=== PATIENT | female | born 1955 | race Caucasian/White ===

== ENCOUNTER → 2016-05-14 | Outpatient (CLI) | payer MEDICARE, MEDICAID | LOC: NC 16:24 | PROVIDERS: ATTEND Internal Medicine Hematology & Oncology | DX: C50.112 Malignant neoplasm of central portion of left female breast (principal) ==

== ENCOUNTER 2016-05-15 16:07 | Emergency (ER) | payer MEDICARE, MEDICAID ==
--- NOTE | 2016-05-15 16:50 | ED.PDOC ---
History of Present Illness - General Chief Complaint: General Stated Complaint: sob, palpitaions Time Seen by Provider: 05/15/16 16:29 Source: patient, RN notes reviewed Exam Limitations: no limitations - History of Present Illness Initial Comments: Patient is a 61 y/o female with a history of metastatic breast cancer. She has a history of anemia. She seems to know when she is anemic because she gets very short of breath when her hemoglobin goes down. Patient has had increasing shortness of breath for several days. She had blood drawn at her oncologist's office and was called today and told to go to the ED because her hemoglobin was low. She reports also being dizzy. Timing/Duration: unsure Severity: moderate Improving Factors: nothing Worsening Factors: movement Associated Symptoms: headaches, shortness of breath, weakness Allergies/Adverse Reactions: Allergies Penicillins Allergy (Severe, Verified 02/29/16 11:00) Anaphylaxis Captopril Allergy (Verified 02/29/16 11:00) Meperidine [From Demerol HCl] Allergy (Verified 02/29/16 11:00) Olmesartan [From Benicar] Allergy (Verified 02/29/16 10:51) Prochlorperazine [From Compazine] Allergy (Verified 02/29/16 10:51) Sulfa Drugs Allergy (Verified 02/29/16 10:51) Home Medications: Ambulatory Orders Albuterol Sulfate 0.083 % IN QID 04/02/13 Clonazepam [Klonopin] 1 mg PO Q8HRS 04/02/13 Fish Oil 1,200 mg PO DAILY 04/02/13 Isosorbide Mononitrate 20 mg PO BID 04/02/13 Montelukast Sodium [Singulair] 10 mg PO BEDTIME 04/02/13 Pantoprazole Sodium [Protonix] 40 mg PO BID 04/02/13 Mirtazapine [Remeron] 30 mg PO HS 07/28/13 Calcium 500 mg PO BID #0 tab 07/30/13 Multiple Vitamin [Multivitamins] 1 cap PO DAILY #0 cap 07/30/13 Albuterol Inhaler [Ventolin Hfa Inhaler] 2 puff INH Q4HR PRN 01/04/14 Cholecalciferol [Vitamin D3] 2 each PO DAILY 01/04/14 Citalopram Hydrobromide 20 mg PO DAILY 01/04/14 Furosemide [Lasix] 20 mg PO DAILY 01/04/14 HYDROcodone 10MG/APAP 325MG [[place] 10/325] 1 - 2 each PO .Q4HR PRN 01/04/14 Magnesium Chloride-Calcium [Slow Magnesium/Calcium 64-106 mg] 2 tab PO QID 01/04 Potassium Chloride [K-Tab] 10 meq PO BID 01/04/14 Tiotropium [place] Monohydrate [Spiriva Handihaler] 1 puff IN DAILY 01/04/14 Cetirizine HCl [Zyrtec] 10 mg PO DAILY 02/29/16 Ferrous Sulfate 324 mg PO BID 02/29/16 Fluticasone Furoate-Vilanterol [Breo Ellipta 100-25 Mcg/INH] 1 inh INH BEDTIME 02/29/16 Insulin Degludec [Tresiba Flextouch] 20 unit SC DAILY 02/29/16 Promethazine W/Codeine Syr [Phenergan With Codeine Syrup] 5 ml PO .Q4H PRN 02/28 Rosuvastatin Calcium [Crestor] 40 mg PO BEDTIME 02/29/16 Sucralfate Tab [Carafate Tab] 1 gm PO QID 02/29/16 Metoprolol Succinate [Toprol XL] 100 mg PO QAM #30 tab 04/14/16 Review of Systems - Review of Systems Constitutional: States: weakness EENTM: States: nose congestion Respiratory: States: short of breath Cardiology: States: palpitations Gastrointestinal/Abdominal: States: no symptoms reported Genitourinary: States: no symptoms reported Musculoskeletal: States: joint pain, muscle pain, muscle stiffness Skin: States: no symptoms reported Neurological: States: headache Endocrine: States: intolerance to heat Hematologic/Lymphatic: States: anemia, easy bleeding, easy bruising All other Systems: Reviewed and Negative Past Medical History (General) - Patient Medical History Hx Seizures: No Hx Stroke: No Hx Dementia: No Hx Asthma: No Hx of COPD: Yes Hx Cardiac Disorders: No Hx Congestive Heart Failure: No Hx Pacemaker: No Hx Hypertension: Yes Hx Thyroid Disease: No Hx Diabetes: Yes Hx Gastroesophageal Reflux: No Hx Renal Disease: No Hx Cancer: Yes Hx of HIV: No Hx Hepatitis C: No Hx MRSA: No Surgical History: appendectomy, cholecystectomy - Vaccination History Hx Tetanus, Diphtheria Vaccination: No Hx Influenza Vaccination: No Hx Pneumococcal Vaccination: No - Social History Hx Tobacco Use: Yes Hx Chewing Tobacco Use: No Hx Alcohol Use: No Hx Substance Use: No Hx Substance Use Treatment: No Hx Depression: No Hx Physical Abuse: No Hx Emotional Abuse: No Hx Suspected Abuse: No - Female History Patient is a Female of Child Bearing Age (10 -59 yrs old): No Patient : No Family Medical History - Family History Grandparents Family History: Unknown Living Status: Mother Living Status: Cause of : Dementia Hx Family Asthma: No Hx Family Congestive Heart Failure: Yes Hx Family Hypertension: Yes Hx Cardiac Disease: Yes Hx Family Diabetes: No Hx Family Cancer: Yes Physical Exam - Physical Exam General Appearance: Alert Eye Exam: bilateral normal Ears, Nose, Throat: hearing grossly normal, normal ENT inspection, sinus pain/ drainage - Bilateral maxillary sinus tenderness, nasal congestion Neck: non-tender Respiratory: lungs clear, normal breath sounds, no respiratory distress, no accessory muscle use Cardiovascular/Chest: normal peripheral pulses, regular rate, rhythm, no edema, no gallop, systolic murmur - III/ Peripheral Pulses: radial,right: 2+, radial,left: 2+, dorsalis pedis,right: 2+, dorsalis pedis,left: 2+ Gastrointestinal/Abdominal: normal bowel sounds, non tender, soft, no organomegaly Extremity: non-tender, no pedal edema, no calf tenderness Neurologic: alert, normal mood/affect, oriented x 3 Skin Exam: pallor Progress - EKG/XRAY/CT EKG: Tachy, no ST T wave changes Comments: 108bpm, nml axis, nml intervals, No comparison, Sinus Tachycardia XRAY: chest Xray Comments: Unremarkable Departure - Departure Clinical Impression: Hematochezia Anemia Qualifiers: Anemia type: iron deficiency Iron deficiency anemia type: chronic blood loss Qualifier Code: (D50.0) 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 Qualifiers: Laterality: unspecified laterality Qualifier Code: (C50.919) Malignant neoplasm of unspecified site of unspecified female breast Time of Disposition: 18:34 Disposition: Transfer to Hospital Condition: Poor Home Medications: Ambulatory Orders Albuterol Sulfate 0.083 % IN QID 04/02/13 Clonazepam [Klonopin] 1 mg PO Q8HRS 04/02/13 Fish Oil 1,200 mg PO DAILY 04/02/13 Isosorbide Mononitrate 20 mg PO BID 04/02/13 Montelukast Sodium [Singulair] 10 mg PO BEDTIME 04/02/13 Pantoprazole Sodium [Protonix] 40 mg PO BID 04/02/13 Mirtazapine [Remeron] 30 mg PO HS 07/28/13 Calcium 500 mg PO BID #0 tab 07/30/13 Multiple Vitamin [Multivitamins] 1 cap PO DAILY #0 cap 07/30/13 Albuterol Inhaler [Ventolin Hfa Inhaler] 2 puff INH Q4HR PRN 01/04/14 Cholecalciferol [Vitamin D3] 2 each PO DAILY 01/04/14 Citalopram Hydrobromide 20 mg PO DAILY 01/04/14 Furosemide [Lasix] 20 mg PO DAILY 01/04/14 HYDROcodone 10MG/APAP 325MG [[place] 10/325] 1 - 2 each PO .Q4HR PRN 01/04/14 Magnesium Chloride-Calcium [Slow Magnesium/Calcium 64-106 mg] 2 tab PO QID 01/04 Potassium Chloride [K-Tab] 10 meq PO BID 01/04/14 Tiotropium [place] Monohydrate [Spiriva Handihaler] 1 puff IN DAILY 01/04/14 Cetirizine HCl [Zyrtec] 10 mg PO DAILY 02/29/16 Ferrous Sulfate 324 mg PO BID 02/29/16 Fluticasone Furoate-Vilanterol [Breo Ellipta 100-25 Mcg/INH] 1 inh INH BEDTIME 02/29/16 Insulin Degludec [Tresiba Flextouch] 20 unit SC DAILY 02/29/16 Promethazine W/Codeine Syr [Phenergan With Codeine Syrup] 5 ml PO .Q4H PRN 02/28 Rosuvastatin Calcium [Crestor] 40 mg PO BEDTIME 02/29/16 Sucralfate Tab [Carafate Tab] 1 gm PO QID 02/29/16 Metoprolol Succinate [Toprol XL] 100 mg PO QAM #30 tab 04/14/16 Transfer to Outside Facility - Transfer Information Accepting Provider:: Dr. Merchant Accepting Facility: [facility] Reason for Transfer: required specialist not available - GI
--- NOTE | 2016-05-15 16:58 | RAD ---
EXAM DESCRIPTION: XR CHEST 1 VIEW CLINICAL HISTORY: shortness of breath COMPARISON: 13 April 2016. TECHNIQUE: AP portable chest FINDINGS: An [id number]-T-[id number] catheter seen in place on the patient's right with the distal tip in the region of the superior vena cava. The lungs are clear. The heart is within the range of normal. IMPRESSION: A right-sided [id number] is observed. The chest is otherwise unremarkable. Electronically signed by: Ken Vogel MD 05/15/2016 16:56
[2016-05-15 17:29] VITALS: O2SAT 98
[2016-05-15 19:18] VITALS: TEMP 98.5
[2016-05-15 19:19] VITALS: BP 119/67
== END 2016-05-15 19:15 | disposition short-term general hospital (02) ==
LOC: ER 16:07
DX: D50.0 Iron deficiency anemia secondary to blood loss (chronic) (principal); K92.1 Melena; C50.919 Malignant neoplasm of unspecified site of unspecified female breast; C79.51 Secondary malignant neoplasm of bone; J44.9 Chronic obstructive pulmonary disease, unspecified; I10 Essential (primary) hypertension; E11.9 Type 2 diabetes mellitus without complications; Z87.891 Personal history of nicotine dependence; Z88.0 Allergy status to penicillin; Z88.2 Allergy status to sulfonamides; Z88.8 Allergy status to other drugs, medicaments and biological substances; Z79.899 Other long term (current) drug therapy; Z79.4 Long term (current) use of insulin

== ENCOUNTER → 2016-05-20 | Outpatient (CLI) | payer MEDICARE, MEDICAID | LOC: NC 12:21 | PROVIDERS: ATTEND Family Medicine | DX: D64.9 Anemia, unspecified (principal) ==

== ENCOUNTER → 2016-05-22 | Outpatient (CLI) | payer MEDICARE, MEDICAID | LOC: GMAJ 18:08 | PROVIDERS: ATTEND Family Medicine | DX: K28.0 Acute gastrojejunal ulcer with hemorrhage (principal) ==

== ENCOUNTER 2016-05-24 16:38 | Emergency (ER) | payer MEDICARE, MEDICAID ==
[2016-05-24] MEDS ORDERED: IPRATROPIUM/ALBUTEROL 3 ML VIAL NEB ONE (17:31)
--- NOTE | 2016-05-24 17:35 | ED.PDOC ---
History of Present Illness - General Chief Complaint: Problem Stated Complaint: burning with urination Time Seen by Provider: 05/24/16 17:30 Source: patient - History of Present Illness Initial Comments: Patient stated that she had multiple episodes of diarrhea watery the last 4 days and todya with burning pain on urination.Recently discharged from hospital with bleeding ulcer and had blood transfusion,egd ,colonoscopy Timing/Duration: other - 4 days ago Improving Factors: nothing Worsening Factors: nothing Associated Symptoms: denies symptoms Allergies/Adverse Reactions: Allergies Penicillins Allergy (Severe, Verified 02/29/16 11:00) Anaphylaxis Captopril Allergy (Verified 02/29/16 11:00) Meperidine [From Demerol HCl] Allergy (Verified 02/29/16 11:00) Olmesartan [From Benicar] Allergy (Verified 02/29/16 10:51) Prochlorperazine [From Compazine] Allergy (Verified 02/29/16 10:51) Sulfa Drugs Allergy (Verified 02/29/16 10:51) Home Medications: Ambulatory Orders Albuterol Sulfate 0.083 % IN QID 04/02/13 Clonazepam [Klonopin] 1 mg PO Q8HRS 04/02/13 Fish Oil [(None)] 1,200 mg PO DAILY 04/02/13 Isosorbide Mononitrate 20 mg PO BID 04/02/13 Montelukast Sodium [Singulair] 10 mg PO BEDTIME 04/02/13 Pantoprazole Sodium [Protonix] 40 mg PO BID 04/02/13 Mirtazapine [Remeron] 30 mg PO HS 07/28/13 Calcium 500 mg PO BID #0 tab 07/30/13 Multiple Vitamin [Multivitamins] 1 cap PO DAILY #0 cap 07/30/13 Albuterol Inhaler [Ventolin Hfa Inhaler] 2 puff INH Q4HR PRN 01/04/14 Cholecalciferol [Vitamin D3] 2 each PO DAILY 01/04/14 Citalopram Hydrobromide 20 mg PO DAILY 01/04/14 Furosemide [Lasix] 20 mg PO DAILY 01/04/14 HYDROcodone 10MG/APAP 325MG [[place] 10/325] 1 - 2 each PO .Q4HR PRN 01/04/14 Magnesium Chloride-Calcium Car [Slow Magnesium Chloride/ 70-117 mg] 2 tab PO QID 01/04/14 Potassium Chloride [K-Tab] 10 meq PO BID 01/04/14 Tiotropium [place] Monohydrate [Spiriva Handihaler] 1 puff IN DAILY 01/04/14 Cetirizine HCl [Zyrtec] 10 mg PO DAILY 02/29/16 Ferrous Sulfate 324 mg PO BID 02/29/16 Fluticasone Furoate-Vilanterol [Breo Ellipta 100-25 Mcg/INH] 1 inh INH BEDTIME 02/29/16 Insulin Degludec [Tresiba Flextouch] 20 unit SC DAILY 02/29/16 Promethazine W/Codeine Syr [Phenergan With Codeine Syrup] 5 ml PO .Q4H PRN 02/28 Rosuvastatin Calcium [Crestor] 40 mg PO BEDTIME 02/29/16 Sucralfate Tab [Carafate Tab] 1 gm PO QID 02/29/16 Metoprolol Succinate [Toprol XL] 100 mg PO QAM #30 tab 04/14/16 Nitrofurantoin Monohydrate Mac [Macrobid] 100 mg PO BID #10 cap 05/24/16 Review of Systems - Review of Systems Constitutional: States: no symptoms reported EENTM: States: no symptoms reported Respiratory: States: no symptoms reported Cardiology: States: no symptoms reported Gastrointestinal/Abdominal: States: diarrhea, other - gi bleeding had recent colonoscopy/egd and apc cautrey done at [facility] Genitourinary: States: frequency Musculoskeletal: States: no symptoms reported Skin: States: no symptoms reported Neurological: States: no symptoms reported Endocrine: States: no symptoms reported Hematologic/Lymphatic: States: anemia Past Medical History (General) - Patient Medical History Hx Seizures: No Hx Stroke: No Hx Dementia: No Hx Asthma: No Hx of COPD: Yes Hx Cardiac Disorders: No Hx Congestive Heart Failure: No Hx Pacemaker: No Hx Hypertension: Yes Hx Thyroid Disease: No Hx Diabetes: Yes Hx Gastroesophageal Reflux: No Hx Renal Disease: No Hx Cancer: Yes - breast with bone metastases Hx of HIV: No Hx Hepatitis C: No Hx MRSA: No Surgical History: appendectomy, cancer surgery - left mastectomy, cholecystectomy - Vaccination History Hx Tetanus, Diphtheria Vaccination: No Hx Influenza Vaccination: Yes Hx Pneumococcal Vaccination: No - Social History Hx Tobacco Use: Yes Hx Chewing Tobacco Use: No Hx Alcohol Use: No Hx Substance Use: No Hx Substance Use Treatment: No Hx Depression: No Hx Physical Abuse: No Hx Emotional Abuse: No Hx Suspected Abuse: No - Activities of Daily Living Patient Lives Alone: No - with family at home - Female History Patient is a Female of Child Bearing Age (10 -59 yrs old): No Patient : No Family Medical History - Family History Grandparents Family History: Unknown Living Status: Mother Living Status: Cause of : Dementia Hx Family Asthma: No Hx Family Congestive Heart Failure: Yes Hx Family Hypertension: Yes Hx Cardiac Disease: Yes Hx Family Diabetes: No Hx Family Cancer: Yes Physical Exam - Physical Exam General Appearance: Alert, No apparent distress Eye Exam: bilateral normal - wears glasses Ears, Nose, Throat: hearing grossly normal, normal ENT inspection, normal pharynx Neck: non-tender, full range of motion, supple Respiratory: lungs clear, normal breath sounds, no respiratory distress, other - left mastectomy Cardiovascular/Chest: normal peripheral pulses, regular rate, rhythm, no edema, no gallop, no murmur Peripheral Pulses: radial,right: 2+, radial,left: 2+ Gastrointestinal/Abdominal: non tender, soft, no organomegaly Back Exam: no CVA tenderness, no vertebral tenderness Extremity: normal range of motion, non-tender, normal inspection, no pedal edema , no calf tenderness Neurologic: no motor/sensory deficits, alert, normal mood/affect Skin Exam: normal color, warm/dry Lymphatic: no adenopathy Departure - Departure Clinical Impression: Noninfectious diarrhea, Hypokalemia, gastrointestinal losses, Anemia due to blood loss, chronic, On antineoplastic chemotherapy Breast cancer metastasized to bone Qualifiers: Laterality: left Qualifier Code: (C50.912) Malignant neoplasm of unspecified site of left female breast Urinary tract infection Qualifiers: Urinary tract infection type: site unspecified Hematuria presence: without hematuria Qualifier Code: (N39.0) Urinary tract infection, site not specified Time of Disposition: 21:43 Disposition: Discharge to Home or Self Care Condition: Good Departure Forms: ED Discharge - Pt. Copy, Patient Portal Self Enrollment Instructions: Probiotics May Decrease Intensity and Duration of Diarrhea Due to Infection Referrals: Yoel Alford MD [Primary Care Provider] - 1-2 Weeks Prescriptions: Nitrofurantoin Monohydrate Mac [Macrobid] 100 mg PO BID #10 cap Home Medications: Ambulatory Orders Albuterol Sulfate 0.083 % IN QID 04/02/13 Clonazepam [Klonopin] 1 mg PO Q8HRS 04/02/13 Fish Oil [(None)] 1,200 mg PO DAILY 04/02/13 Isosorbide Mononitrate 20 mg PO BID 04/02/13 Montelukast Sodium [Singulair] 10 mg PO BEDTIME 04/02/13 Pantoprazole Sodium [Protonix] 40 mg PO BID 04/02/13 Mirtazapine [Remeron] 30 mg PO HS 07/28/13 Calcium 500 mg PO BID #0 tab 07/30/13 Multiple Vitamin [Multivitamins] 1 cap PO DAILY #0 cap 07/30/13 Albuterol Inhaler [Ventolin Hfa Inhaler] 2 puff INH Q4HR PRN 01/04/14 Cholecalciferol [Vitamin D3] 2 each PO DAILY 01/04/14 Citalopram Hydrobromide 20 mg PO DAILY 01/04/14 Furosemide [Lasix] 20 mg PO DAILY 01/04/14 HYDROcodone 10MG/APAP 325MG [[place] 10/325] 1 - 2 each PO .Q4HR PRN 01/04/14 Magnesium Chloride-Calcium Car [Slow Magnesium Chloride/ 70-117 mg] 2 tab PO QID 01/04/14 Potassium Chloride [K-Tab] 10 meq PO BID 01/04/14 Tiotropium [place] Monohydrate [Spiriva Handihaler] 1 puff IN DAILY 01/04/14 Cetirizine HCl [Zyrtec] 10 mg PO DAILY 02/29/16 Ferrous Sulfate 324 mg PO BID 02/29/16 Fluticasone Furoate-Vilanterol [Breo Ellipta 100-25 Mcg/INH] 1 inh INH BEDTIME 02/29/16 Insulin Degludec [Tresiba Flextouch] 20 unit SC DAILY 02/29/16 Promethazine W/Codeine Syr [Phenergan With Codeine Syrup] 5 ml PO .Q4H PRN 02/28 Rosuvastatin Calcium [Crestor] 40 mg PO BEDTIME 02/29/16 Sucralfate Tab [Carafate Tab] 1 gm PO QID 02/29/16 Metoprolol Succinate [Toprol XL] 100 mg PO QAM #30 tab 04/14/16 Nitrofurantoin Monohydrate Mac [Macrobid] 100 mg PO BID #10 cap 05/24/16 Additional Instructions: RETURN TO EMERGENCY ROOM NEEDED
[2016-05-24] MEDS ORDERED: LACTATED RINGERS 1,000 ML IVS ONE (17:37)
[2016-05-24] MEDS ORDERED: POTASSIUM CHLORIDE 20 MEQ TAB PO ONE (19:12)
[2016-05-24] MEDS ORDERED: KCL 20MEQ/WATER FOR INJ 100ML 20 MEQ in PREMIX BAG 1 BAG IVPB ONE (19:13)
[2016-05-24] MEDS ORDERED: KCL 20MEQ/WATER FOR INJ 100ML 100 ML IVPB ONE (19:37)
[2016-05-24] MEDS ORDERED: NITROFURANTOIN MONO (ER DISP) 100 MG CAP PO ONE (21:49)
[2016-05-24] MEDS ORDERED: NITROFURANTOIN MONOHYDRATE MAC 100 MG CAP ONE (21:59)
[2016-05-24] MEDS ORDERED: NITROFURANTOIN MONOHYDRATE MAC 100 MG CAP PO ONE (22:01)
[2016-05-24] MEDS ORDERED: HEPARIN SODIUM 100 U/ML 5 ML SYG IV ONE (22:32)
[2016-05-24 22:52] VITALS: O2SAT 94
[2016-05-24 22:59] VITALS: BP 108/64; TEMP 97.9
== END 2016-05-24 22:59 | disposition home or self-care (01) ==
LOC: ER 16:38
DX: N39.0 Urinary tract infection, site not specified (principal); C50.912 Malignant neoplasm of unspecified site of left female breast; C79.51 Secondary malignant neoplasm of bone; R19.7 Diarrhea, unspecified; E87.6 Hypokalemia; J44.9 Chronic obstructive pulmonary disease, unspecified; I10 Essential (primary) hypertension; Z90.12 Acquired absence of left breast and nipple; Z87.891 Personal history of nicotine dependence; E11.9 Type 2 diabetes mellitus without complications; D50.0 Iron deficiency anemia secondary to blood loss (chronic); Z79.899 Other long term (current) drug therapy; Z79.4 Long term (current) use of insulin; Z88.0 Allergy status to penicillin; Z88.2 Allergy status to sulfonamides
CPT/HCPCS: 36415; 80053; 81001; 83735; 85025; 87086; 87088; 87186; 87324; J1642; J3480; J7120; J7620

== ENCOUNTER → 2016-06-04 | Outpatient (CLI) | payer MEDICARE, OTHER | LOC: NC 14:24 | PROVIDERS: ATTEND Family Medicine | DX: C50.112 Malignant neoplasm of central portion of left female breast (principal); C79.51 Secondary malignant neoplasm of bone ==

== ENCOUNTER → 2016-06-11 | Outpatient (CLI) | payer MEDICARE, OTHER | LOC: NC 10:33 | PROVIDERS: ATTEND Family Medicine | DX: C79.51 Secondary malignant neoplasm of bone (principal) ==

== ENCOUNTER → 2016-06-18 | Outpatient (CLI) | payer MEDICARE, OTHER | LOC: NC 14:00 | PROVIDERS: ATTEND Internal Medicine Gastroenterology | DX: C50.112 Malignant neoplasm of central portion of left female breast (principal); C79.51 Secondary malignant neoplasm of bone ==

== ENCOUNTER → 2016-06-25 | Outpatient (CLI) | payer MEDICARE, OTHER | END | disposition home or self-care (01) | LOC: NC 11:54 | PROVIDERS: ATTEND Family Medicine | DX: C79.51 Secondary malignant neoplasm of bone (principal) ==

== ENCOUNTER → 2016-07-02 | Outpatient (CLI) | payer MEDICARE, OTHER | END | disposition home or self-care (01) | LOC: NC 10:20 | PROVIDERS: ATTEND Family Medicine | DX: C79.51 Secondary malignant neoplasm of bone (principal) ==

== ENCOUNTER 2016-08-03 06:00 | Outpatient (CLI) | payer MEDICARE, MEDICAID ==
[2016-08-03] MEDS ORDERED: SODIUM CHLORIDE 0.9% 500ML 500 ML IVS ONE (08:13)
[2016-08-03] MEDS ORDERED: diphenhydrAMINE HCL 50 MG/ML VIAL IV ONE (08:25)
[2016-08-03] MEDS ORDERED: ACETAMINOPHEN 325 MG TAB PO ONE (08:26)
[2016-08-03] MEDS ORDERED: SODIUM CHLORIDE 0.9% (FLUSH) 10 ML SYG IV ONE (14:08)
[2016-08-03] MEDS ORDERED: HEPARIN SODIUM 100 U/ML 5 ML SYG IV ONE (14:09)
[2016-08-03 14:22] VITALS: BP 132/72; TEMP 99.1; O2SAT 99
== END 2016-08-03 14:30 | disposition home or self-care (01) ==
LOC: TXRM 06:00
PROVIDERS: ATTEND Internal Medicine Hematology & Oncology
PROC: 30233N1 Transfusion of Nonautologous Red Blood Cells into Peripheral Vein, Percutaneous Approach (ICD-10-PCS; principal; 2016-08-03 08:00)
DX: D64.9 Anemia, unspecified (principal)
CPT/HCPCS: 36415; 36430; 85014; 85018; 86850; 86900; 86901; 86922; 87798; A4216; G0463; J1200; J1642; J7040; P9016

== ENCOUNTER → 2016-08-06 | Outpatient (CLI) | payer MEDICARE, MEDICAID | END | disposition home or self-care (01) | LOC: NC 10:23 | PROVIDERS: ATTEND Family Medicine | DX: C50.112 Malignant neoplasm of central portion of left female breast (principal); E11.42 Type 2 diabetes mellitus with diabetic polyneuropathy; I11.9 Hypertensive heart disease without heart failure ==

== ENCOUNTER → 2016-08-30 | Outpatient (CLI) | payer MEDICARE, MEDICAID ==
--- NOTE | 2016-08-31 08:03 | CT ---
EXAM DESCRIPTION: Abdomen/Pelvis w/wo Contrast (accession [id number]), Chest w/Contrast (accession [id number]) CLINICAL HISTORY: 61 years Female, MALIGNANT NEOPLASM OF BREAST COMPARISON: CT abdomen pelvis performed on September 14, [address] of the chest abdomen pelvis performed in December 10, 2014 TECHNIQUE: CT of the chest, abdomen and pelvis was performed with IV contrast. Pre-IV contrast images of the abdomen and pelvis were also obtained. This exam was performed according to our departmental dose-optimization program, which includes automated exposure control, adjustment of the mA and/or kV according to patient size and/or use of iterative reconstruction technique. FINDINGS: CT chest: There has been previous left-sided mastectomy. No axillary adenopathy or right breast lesion is identified. A right-sided Mediport device is present, only partially visualized. There is no mediastinal or hilar adenopathy. No pleural or pericardial effusion. The central airways are clear. There is no airspace consolidation or suspicious lung nodule. There are multiple round lytic lesions in the right humeral head, nonspecific and only partially visualized. There is mixed lytic sclerotic appearance of the T8 vertebral body without compression deformity, unchanged from November,. CT abdomen pelvis: There is no adenopathy, ascites or pneumoperitoneum. The gallbladder is surgically absent. There is a 1.3 cm right adrenal nodule which is unchanged from November, and probably represents an adenoma. No new adrenal nodule. The spleen is slightly enlarged, measuring 14.5 cm in length, and this is new from the prior exam. There is small round low density lesions in both kidneys which are incompletely characterized but likely represent cysts. No small bowel wall thickening or dilated small bowel loop. The uterus and ovaries are unremarkable for patient's age. There is occasional colonic diverticulosis without diverticulitis. There is an irregular area of lysis and sclerosis posteriorly in the left ilium, unchanged from November,. There are degenerative changes in the lumbar spine at several levels. IMPRESSION: Irregular areas of lysis and sclerosis in the left ilium, T8 vertebral body and partially visualized in the right humeral head, nonspecific. The appearance of the T8 body and left ilium is unchanged from November,. Differential considerations include fibrous dysplasia or bony metastatic disease. Mild splenomegaly, nonspecific but new from November,. Postoperative changes related previous left-sided mastectomy, but no additional evidence of recurrent or metastatic disease in the chest, abdomen or pelvis. Small right adrenal adenoma, colonic diverticulosis without diverticulitis and other nonacute findings as detailed above. Electronically signed by: Gume Sue MD 08/31/2016 8:01 AM CDT
--- NOTE | 2016-09-03 08:22 | NM ---
EXAM DESCRIPTION: Bone Scan, Whole Body CLINICAL HISTORY: 61 years Female, C50.112 breast cancer COMPARISON: Bone scan obtained on October 06, 2015 [address]s performed on August 30, 2016, September 14, 2015 and December 10, 2014 TECHNIQUE: Whole body bone scan was performed after the IV administration of 26.8 mCi technetium 99 M-MDP FINDINGS: No whole-body images are included on this exam. There is some increased activity in the left ilium, stable or slightly decreased from the patient's previous bone scan and correlating with findings from previous CTs. There is some slightly increased activity in both shoulders including the humeral heads, nonspecific. Asymmetrically increased activity in the right humeral head which was seen on the previous bone scan is not identified on the current study. There is some degenerative activity in the knees bilaterally. No additional bone lesion is identified. Specifically, there is no pathologic activity at any level in the cervical, thoracic or lumbar spine. Physiologic soft tissue activity is noted in the kidneys and bladder. IMPRESSION: Increased activity in the left ilium and right humeral head, stable or decreased from Sep, 2015. Considering the appearance of the left ilium on the patient's most recent CT and older CTs, findings suggest Paget's disease, less likely treated bony metastatic disease. Electronically signed by: Gume Seu MD 09/03/2016 8:21 AM CDT
== END | disposition home or self-care (01) ==
LOC: CT 08-28 08:42
PROVIDERS: ATTEND Internal Medicine Hematology & Oncology
DX: C50.112 Malignant neoplasm of central portion of left female breast (principal)

== ENCOUNTER → 2016-09-19 | Outpatient (CLI) | payer MEDICARE, MEDICAID | END | disposition home or self-care (01) | LOC: NC 14:19 | PROVIDERS: ATTEND Family Medicine | DX: C50.112 Malignant neoplasm of central portion of left female breast (principal) ==

== ENCOUNTER → 2016-09-27 | Outpatient (CLI) | payer MEDICARE, MEDICAID | END | disposition home or self-care (01) | LOC: NC 13:59 | PROVIDERS: ATTEND Family Medicine | DX: D64.9 Anemia, unspecified (principal) ==

== ENCOUNTER → 2016-10-11 | Outpatient (CLI) | payer MEDICARE, MEDICAID | END | disposition home or self-care (01) | LOC: NC 14:36 | PROVIDERS: ATTEND Family Medicine | DX: C50.112 Malignant neoplasm of central portion of left female breast (principal); R30.0 Dysuria ==

== ENCOUNTER → 2016-10-18 | Outpatient (CLI) | payer MEDICARE, MEDICAID | END | disposition home or self-care (01) | LOC: NC 14:12 | PROVIDERS: ATTEND Family Medicine | DX: D64.9 Anemia, unspecified (principal) ==

== ENCOUNTER 2016-11-29 14:37 | Inpatient (IN) | payer MEDICARE, MEDICAID ==
--- NOTE | 2016-11-29 14:39 | HP ---
SUPERVISING PHYSICIAN: Ollie Bishop M.D. CHIEF COMPLAINT: Cellulitis of the back. HISTORY OF PRESENT ILLNESS: This is a 61 year-old female patient who has a longstanding history of breast cancer and diabetes, who saw her primary care physician, Dr. Alford, in the office on Saturday for an EIC of her upper back. He gave her Rifampin and doxycycline. She thinks that this has been going on for about a month, but it was about 10 cm in diameter with no fluctuance. This morning, she actually called EMS because she became quite nauseated and felt that she was having an adverse reaction to her Rifampin as she has taken doxycycline in the past without any problem. She also had a low blood sugar and EMS did not take her to any facility as she recovered quite nicely after she called them. She did go to [facility] today for her scheduled chemotherapy treatment per Dr. Joshua Lazar, her oncologist. She had to stop mcc between [place] and [facility] due to her low blood sugar and once she got to Dr. Lazar' office, Shena Chaudhary [facility], examined her back and the area of cellulitis had extended to most of her upper back. It was quite inflamed as well as edematous. There was no fluctuance. Shena Chaudhary called me about the patient and then Dr. Alford called me and she was sent over as a direct admission for failed outpatient antibiotic therapy for her cellulitis on her upper back and to receive vancomycin IV antibiotic treatments. PAST MEDICAL HISTORY: 1. Diabetes mellitus type 2. 2. Breast cancer left sided. 3. Chronic obstructive pulmonary disease. 4. Congestive heart failure of unknown etiology. 5. Hypertension. 6. Gastroesophageal reflux disease. 7. Coronary artery disease. PAST SURGICAL HISTORY: 1. Appendectomy. 2. Cholecystectomy. 3. Left breast mastectomy. CURRENT MEDICATIONS: Per the EMR and awaiting verification. ALLERGIES: PENICILLIN, CAPTOPRIL, MEPERIDINE, BENICAR, COMPAZINE, SULFA AND RIFAMPIN. SOCIAL HISTORY: She smoked for many years but she quit back in 2009. She denies any ETOH or illicit drug use. REVIEW OF SYSTEMS: Positive for low-grade fever. Negative for any fatigue or weight changes. HEENT: Denies sinus symptoms, ear pain, vision changes or sore throat. RESPIRATORY: Denies coughing, wheezing or shortness of breath. CARDIAC: Denies chest pain, palpitations or tachycardia. GASTROINTESTINAL: Denies nausea or vomiting, diarrhea or constipation. NEUROLOGIC: Denies headache, dizziness or seizures. SKIN: As per history of present illness. GENITOURINARY: Denies dysuria, hematuria or polyuria. PHYSICAL EXAMINATION: VITAL SIGNS: Temperature 100.1, pulse rate 83, blood pressure 115/69, respiratory rate 17, O2 sat 96% on room air. GENERAL: This is a 61 year-old female patient who is sitting in her hospital bed. She is in no acute distress. HEENT: Normocephalic and atraumatic. Pupils are equal and reactive. Oropharynx is clear. Oral mucous membranes are moist. NECK: Supple without mass. CHEST: Clear to auscultation bilaterally. There is equal rise and fall of the chest with inspiration and expiration. CARDIOVASCULAR: Regular rate and rhythm. ABDOMEN: Soft, nondistended, non-tender. Bowel sounds are positive. EXTREMITIES: No cyanosis, clubbing or edema. SKIN: She has a large area on her upper back that has induration and erythema with 1 central EIC. The actual EIC is approximately 6 to 7 cm in diameter but the area of erythema is across the entire upper back. There is no fluctuance. LABORATORY: White count is 6.4, hemoglobin 11.7, hematocrit 36.7, platelets 125. Chemistry basically is within normal limits with the exception of glucose is 137, AST 44 and alkaline phosphatase is 409. C reactive protein is 2.8 and ESR is 45. Urinalysis is negative except for it is orange which is most likely due to the Rifampin. Urine culture and blood culture is pending. All other labs and films have been reviewed via the EMR. ASSESSMENT: 1. Cellulitis to the upper back that has failed outpatient antibiotic therapy presently on vancomycin. 2. Left sided breast cancer presently on chemotherapy treatment. 3. Diabetes mellitus type 2. 4. Hypertension. 5. Gastroesophageal reflux disease. 6. Congestive heart failure of unknown etiology. 7. Chronic obstructive pulmonary disease. PLAN: We will admit the patient to the hospital. She will receive vancomycin IV antibiotics. Depending on her response to treatment will depend on how long she will be in the hospital. I have ordered AM labs as well as continued her home medications and I have started her on sliding scale insulin. Will encourage good pulmonary hygiene. We will continue to monitor closely and followup as needed. Dr. Bishop is the collaborating physician available for consultation. #[id number] [facility]
[2016-11-29] MEDS ORDERED: SODIUM CHLORIDE 0.9% (FLUSH) 10 ML SYG IV PRN (15:14)
[2016-11-29] MEDS ORDERED: SODIUM CHLORIDE 0.45% 1000ML 1,000 ML IVS PRN (15:19)
[2016-11-29] MEDS ORDERED: IV SET AND CAP CHANGE INJ INJ SCH (15:30)
[2016-11-29] MEDS ORDERED: VANCOMYCIN PER PHARMACY INJ SCH (15:30)
[2016-11-29] MEDS ORDERED: ALBUTEROL SULFATE 2.5 MG/3 ML VIAL NEB PRN (16:01)
[2016-11-29] MEDS ORDERED: GLUCAGON INJ 1 MG VIAL SUBCU PRN (17:05)
[2016-11-29] MEDS ORDERED: DEXTROSE 50% 25 GM/50 ML SYG IV PRN (17:05)
[2016-11-29] MEDS ORDERED: VANCOMYCIN HCL INJ 1,000 MG VIAL IVPB ONE (17:30)
[2016-11-29] MEDS ORDERED: SODIUM CHLORIDE 0.9% 250ML 250 ML ONE (17:30)
[2016-11-29] MEDS: VANCOMYCIN HCL INJ 750 MG in SODIUM CHLORIDE 0.9% 250ML 250 ML IVPB SCH (17:36)
[2016-11-29] MEDS ORDERED: HYDROcodone 10MG/APAP 325MG 1 EA TAB PO PRN (18:28)
[2016-11-29] MEDS: NON-FORMULARY MEDICATION 1 EA MIS (Fluticasone Furoate-Vilanterol [Breo Ellipta 100-25 Mcg INH SCH (19:30)
[2016-11-29] MEDS: ALBUTEROL SULFATE 2.5 MG/3 ML VIAL NEB SCH (19:30)
[2016-11-29] MEDS ORDERED: MIRTAZAPINE 15 MG TAB ONE (20:05)
[2016-11-29] MEDS: diphenhydrAMINE HCL 50 MG/ML VIAL IV PRN (20:24)
[2016-11-29] MEDS: METOPROLOL SUCCINATE XL 100 MG TAB PO SCH (20:31)
[2016-11-29] MEDS: MONTELUKAST 10 MG TAB PO SCH (20:32)
[2016-11-29] MEDS ORDERED: ISOSORBIDE MONONITRATE (ISMO) 20 MG TAB PO SCH (21:00)
[2016-11-29] MEDS ORDERED: NON-FORMULARY MEDICATION 1 EA MIS (Rosuvastatin Calcium [Crestor] 40 MG) PO SCH (21:00)
[2016-11-29] MEDS ORDERED: NON-FORMULARY MEDICATION 1 EA MIS (Clonazepam [Klonopin] 1 MG) PO SCH (21:00)
[2016-11-29] MEDS ORDERED: FERROUS SULFATE 325 MG TAB PO SCH (21:00)
[2016-11-29] MEDS ORDERED: MIRTAZAPINE 30 MG PO SCH (21:00)
[2016-11-29] MEDS ORDERED: PANTOPRAZOLE SODIUM TAB 40 MG PO SCH (21:00)
[2016-11-29] MEDS: INSULIN LISPRO 100 UNITS/ML PEN SUBCU SCH (21:08)
[2016-11-30] MEDS ORDERED: VANCOMYCIN HCL INJ 1,000 MG VIAL IVPB ONE ×2 (02:15→16:08)
[2016-11-30] MEDS ORDERED: SODIUM CHLORIDE 0.9% 250ML 250 ML ONE ×2 (02:15→16:08)
[2016-11-30] MEDS: diphenhydrAMINE HCL 50 MG/ML VIAL IV PRN ×2 (02:21→23:18)
[2016-11-30] MEDS: VANCOMYCIN HCL INJ 750 MG in SODIUM CHLORIDE 0.9% 250ML 250 ML IVPB SCH ×2 (04:16→16:34)
[2016-11-30] MEDS ORDERED: INSULIN ASPART 15 UNIT SC SCH (07:00)
[2016-11-30] MEDS ORDERED: SODIUM CHLORIDE 0.45% 1000ML 0 ML IVS ONE ×3 (07:02→13:00)
[2016-11-30] MEDS ORDERED: POTASSIUM CHLORIDE 10 MEQ TAB PO ONE (07:56)
[2016-11-30] MEDS: ALBUTEROL SULFATE 2.5 MG/3 ML VIAL NEB SCH ×2 (08:05→21:15)
[2016-11-30] MEDS: INSULIN LISPRO 100 UNITS/ML PEN SUBCU SCH ×6 (08:06→21:37)
[2016-11-30] MEDS: POTASSIUM CHLORIDE 20 MEQ TAB PO SCH ×2 (08:22→16:36)
[2016-11-30] MEDS: INSULIN DEGLUDEC 30 UNIT SC SCH (09:42)
[2016-11-30] MEDS ORDERED: ACETAMINOPHEN 500 MG TAB ONE (09:49)
[2016-11-30] MEDS: BIFIDOBACTERIUM INFANTIS 4 MG CAP PO SCH (09:54)
[2016-11-30] MEDS: MAGNESIUM CHLORIDE 64 MG TAB PO SCH (09:54)
[2016-11-30] MEDS: CITALOPRAM HBR 20 MG TAB PO SCH (09:56)
[2016-11-30] MEDS: FERROUS SULFATE 325 MG TAB PO SCH ×2 (09:57→16:35)
[2016-11-30] MEDS: METOPROLOL SUCCINATE XL 100 MG TAB PO SCH ×2 (09:58→20:59)
[2016-11-30] MEDS: FUROSEMIDE 40 MG TAB PO SCH (09:58)
[2016-11-30] MEDS: ISOSORBIDE MONONITRATE (ISMO) 20 MG TAB PO SCH ×2 (09:59→16:35)
[2016-11-30] MEDS: ACETAMINOPHEN 500 MG TAB PO PRN ×3 (10:01→23:14)
[2016-11-30] MEDS ORDERED: SODIUM CHLORIDE 0.9% 1000ML 1,000 ML IVS PRN (12:51)
[2016-11-30] MEDS: PANTOPRAZOLE SODIUM TAB 40 MG PO SCH (16:36)
--- NOTE | 2016-11-30 18:28 | PN ---
DATE: 11/30/16 SUBJECTIVE: The patient is sitting up in the bed and in some ways she states that she has less pain and in fact more itching in the region of her back where she has the very large area of cellulitis. Still quite tender to the touch. There is no history of injury to the area. It is of note that she developed breast cancer in January of 2013 and started on chemotherapy in May of 2013. She had had negative lymph nodes at the time of her surgery initially, but she developed some bony metastasis in 2014 and has subsequently had to change her chemotherapy several times because of significant bleeding tendencies in her stomach as a side effects of the chemotherapy. She is now being followed by Dr. Lazar, oncologist in the [facility]. She went to see Dr. Lazar a couple of days ago for her chemotherapy, but after evaluating her back and the fact that she was on outpatient medications for an underlying infection, he felt that it would be best to continue the treatment for the infection and to hold chemotherapy at this time. OBJECTIVE: Temperature 97.8, pulse 73, blood pressure 123/69, pulse oximetry 99 % on room air. Weight 98.8 kilos. GENERAL: The patient is awake and alert. She is tearful. In some ways she says she feels about the same as yesterday, but in other ways she feels much better. Yesterday, she thought she was going to , and she does not feel that way today. There still is erythema on the back but it seems to be less prominent than marked with a marker yesterday. Areas of tenderness upon gentle palpation. No significant fluctuation noted at this time. No drainage. HEART: Within normal limits. LUNGS: Generally clear. ABDOMEN: Obese yet soft. LABORATORY: White count is down from 6,400 to 2,800 with 68% neutrophils with an absolute neutrophil count of approximately 1,800. Chemistry showed potassium 3.8, sugar fasting this morning was 137. Alkaline phosphatase elevated at 333 which is down from 409 yesterday. Albumin 3.1. Urinalysis generally clean. Cultures: Blood and urine negative. ASSESSMENT: 1. Acute cellulitis to the mid back having failed outpatient therapy and getting worse clinically requiring parenteral vancomycin because of the progression of the disease and with elevated C reactive protein. 2. History of breast cancer on the left side with radical surgery now undergoing several years of chemotherapy. 3. Diabetes mellitus type 2 with sliding scale augmentation to assist with ongoing management. 4. History of hypertension. 5. History of gastroesophageal reflux disease. 6. History of congestive heart failure of undetermined etiology. 7. Chronic obstructive pulmonary disease. 8. Pancytopenia with anemia, thrombocytopenia and leukopenia present probably as a result of ongoing chemotherapy for breast cancer. PLAN: Continue current treatment program with vancomycin trough by tomorrow. Readjust the dose as needed. In the meantime, try to increase activity level. Continue to follow the pancytopenia to make sure that it does not reach too low of a jose guadalupe. Observe diabetic and its control. Reevaluate in the morning. [facility][id number] [facility]
[2016-11-30] MEDS: ATORVASTATIN 20 MG TAB PO SCH (20:59)
[2016-11-30] MEDS: MIRTAZAPINE 15 MG TAB PO SCH (20:59)
[2016-11-30] MEDS: MONTELUKAST 10 MG TAB PO SCH (20:59)
[2016-11-30] MEDS: NON-FORMULARY MEDICATION 1 EA MIS (Fluticasone Furoate-Vilanterol [Breo Ellipta 100-25 Mcg INH SCH (21:15)
[2016-12-01] MEDS ORDERED: VANCOMYCIN HCL INJ 1,000 MG VIAL IVPB ONE ×2 (01:27→16:30)
[2016-12-01] MEDS ORDERED: SODIUM CHLORIDE 0.9% 250ML 250 ML ONE ×2 (01:27→16:28)
[2016-12-01] MEDS: VANCOMYCIN HCL INJ 750 MG in SODIUM CHLORIDE 0.9% 250ML 250 ML IVPB SCH ×2 (04:22→16:28)
[2016-12-01] MEDS: PANTOPRAZOLE SODIUM TAB 40 MG PO SCH ×2 (06:04→16:50)
[2016-12-01] MEDS: INSULIN LISPRO 100 UNITS/ML PEN SUBCU SCH ×4 (07:55→21:25)
[2016-12-01] MEDS: POTASSIUM CHLORIDE 20 MEQ TAB PO SCH ×2 (07:56→16:50)
[2016-12-01] MEDS: FERROUS SULFATE 325 MG TAB PO SCH ×2 (07:56→16:50)
[2016-12-01] MEDS: FUROSEMIDE 40 MG TAB PO SCH (08:28)
[2016-12-01] MEDS: MAGNESIUM CHLORIDE 64 MG TAB PO SCH (08:28)
[2016-12-01] MEDS: guaiFENesin ER TAB 600 MG TAB PO SCH (08:28)
[2016-12-01] MEDS: CITALOPRAM HBR 20 MG TAB PO SCH (08:28)
[2016-12-01] MEDS: METOPROLOL SUCCINATE XL 100 MG TAB PO SCH ×2 (08:28→20:30)
[2016-12-01] MEDS: BIFIDOBACTERIUM INFANTIS 4 MG CAP PO SCH (08:29)
[2016-12-01] MEDS: ISOSORBIDE MONONITRATE (ISMO) 20 MG TAB PO SCH ×2 (08:29→16:50)
[2016-12-01] MEDS: INSULIN DEGLUDEC 30 UNIT SC SCH (08:30)
[2016-12-01] MEDS: ACETAMINOPHEN 500 MG TAB PO PRN ×3 (08:30→20:29)
[2016-12-01] MEDS: ALBUTEROL SULFATE 2.5 MG/3 ML VIAL NEB SCH ×2 (08:41→20:20)
--- NOTE | 2016-12-01 11:20 | PN ---
DATE: [id number] SUBJECTIVE: The patient is sitting up in the bed. She looks improved but states that she still does not feel well. She is now continuing with her vancomycin after having failed outpatient therapy for a large area of cellulitis on her upper mid back. Because of the possibility of abscess formation and need for incision and drainage, will try a soft tissue ultrasound to examine this area and see if Dr. Pineda would be able to assist with the ongoing management. OBJECTIVE: Afebrile, blood pressure 135/73, pulse oximetry 98% on room air. LUNGS: Clear. HEART: Tones regular. twister tender over the area of cellulitis with localized swelling. The area seems to be quite indurated but the possibility of incision and drainage to assist with the resolution to be considered. LABORATORY: Significant pancytopenia showing slight improvement with white count up to 3,000, hemoglobin stable at 10.4 and platelet count up from 86,000 to 97,000 count. Neutrophils are also up to 67.7%. Blood cultures and urine culture are negative. ASSESSMENT: 1. Acute cellulitis involving a large area of the mid back having failed outpatient therapy and worsening clinically requiring parenteral vancomycin with no specific culture results noted, but with an elevated C reactive protein. The possibility of underlying abscess formation to be considered and to be evaluated for at this time. 2. History of breast cancer on the left side with radical surgery now undergoing years of chemotherapy with most recent chemotherapy of last 3 days being held because of the cellulitis. 3. Significant pancytopenia probably resulting from the jose guadalupe of chemical effect on her bone marrow from the chemotherapy from the week previously showing some stabilization and slight improvement. 4. Diabetes mellitus type 2 with a sliding scale augmentation to assist with ongoing management. 5. History of hypertension. 6. History of gastroesophageal reflux disease. 7. History of congestive heart failure with undetermined etiology. 8. Chronic obstructive pulmonary disease, stable. PLAN: Await ultrasound of soft tissue to evaluate for possible abscess formation. Continue vancomycin. Will request Dr. Pineda to evaluate the cellulitis area to see if he feels there is any area of suppuration and fluctuation that would benefit from an incision and drainage as the vancomycin now has been present for at least a couple of days. Close observation and followup of vancomycin trough levels. [facility][id number] [facility]
--- NOTE | 2016-12-01 12:41 | CONS ---
DATE OF CONSULTATION: 12/01/16 HISTORY OF PRESENT ILLNESS: The patient is a 61 year-old female who I've known since the diagnosis of breast cancer was made in 2012. She has developed an area of cellulitis in the back associated with an inclusion cyst. She was started on oral antibiotics as an outpatient. She did not improve. In fact, went on to see her oncologist for chemotherapy at which point they felt she needed to be admitted for IV antibiotic therapy, and she was admitted and started on vancomycin. She is better today, but I have been asked to see her and follow along with her in case she develops an area requiring drainage. The patient did have her chemotherapy held on . She is currently afebrile. States she does not feel as well as she did yesterday, but states that the pain has decreased and she also denies fever or chills, nausea or vomiting. PAST MEDICAL HISTORY: 1. Diabetes. 2. Breast cancer from 2012. 3. Chronic obstructive pulmonary disease. 4. Congestive heart failure. 5. Hypertension. 6. Gastroesophageal reflux disease. 7. Coronary artery disease. PAST SURGICAL HISTORY: 1. Status post appendectomy. 2. Cholecystectomy. 3. Left mastectomy. CURRENT MEDICATIONS: Medical records have the multiple medications she is taking. ALLERGIES: PENICILLIN, CAPTOPRIL, MEPERIDINE, BENICAR, COMPAZINE, SULFA AND RIFAMPIN. SOCIAL HISTORY: The patient quit smoking in 2009. There is no history of alcohol or drug abuse. REVIEW OF SYSTEMS: Currently there is no significant pain. No shortness of breath. No chest pain. No nausea or vomiting. She denies urinary tract symptoms. PHYSICAL EXAMINATION: VITAL SIGNS: The patient is currently afebrile and normotensive. HEENT: Sclera are nonicteric. Mucous membranes are moist. NECK: Without adenopathy. CHEST: Equal breath sounds bilaterally anteriorly. She has a right subclavian venous access port which is accessed on the right side. ABDOMEN: Soft and benign. BACK: The upper mid back reveals an inclusion cyst with surrounding induration and erythema. There is no fluctuance. No crepitance and is only mildly tender. There is a pin aleksandar noted around this which is outside the current erythema. EXTREMITIES: Without clubbing, cyanosis or edema. LABORATORY: Potassium this morning is 4.1 with creatinine of 0.86. Blood sugars are between 197 and 147. White blood cell count this morning is 3,000 up from 2.8 yesterday. Hemoglobin is stable at 10.4. She has 97,000 platelets which is up from 86,000 yesterday. Segmented neutrophils are 67 up from 65. ESR was 45 on admission. IMPRESSION: 1. Metastatic breast carcinoma undergoing chemotherapy with an infected inclusion cyst with surrounding cellulitis which has failed outpatient oral therapy with Doxycycline and is now currently improving on vancomycin. 2. Pancytopenia secondary to chemotherapy which appears to be improving. 3. Multiple other medical illnesses which are stable. RECOMMENDATIONS: Continue same. Will add warm moist soaks since the patient is accessed with her port and should not shower. #[id number] [facility]
[2016-12-01] MEDS: VANCOMYCIN HCL INJ 1,000 MG in SODIUM CHLORIDE 0.9% 250ML 250 ML IVPB SCH (16:50)
[2016-12-01] MEDS: NON-FORMULARY MEDICATION 1 EA MIS (Fluticasone Furoate-Vilanterol [Breo Ellipta 100-25 Mcg INH SCH (20:20)
[2016-12-01] MEDS: MONTELUKAST 10 MG TAB PO SCH (20:30)
[2016-12-01] MEDS: ATORVASTATIN 20 MG TAB PO SCH (20:30)
[2016-12-01] MEDS: MIRTAZAPINE 15 MG TAB PO SCH (20:30)
[2016-12-02] MEDS ORDERED: SODIUM CHLORIDE 0.9% 250ML 250 ML ONE ×2 (00:24→16:24)
[2016-12-02] MEDS ORDERED: VANCOMYCIN HCL INJ 1,000 MG VIAL IVPB ONE ×2 (00:24→16:25)
[2016-12-02] MEDS: VANCOMYCIN HCL INJ 1,000 MG in SODIUM CHLORIDE 0.9% 250ML 250 ML IVPB SCH ×2 (04:12→16:35)
[2016-12-02] MEDS: PANTOPRAZOLE SODIUM TAB 40 MG PO SCH ×2 (06:02→16:39)
[2016-12-02] MEDS: INSULIN LISPRO 100 UNITS/ML PEN SUBCU SCH ×4 (07:24→21:28)
[2016-12-02] MEDS: ALBUTEROL SULFATE 2.5 MG/3 ML VIAL NEB SCH ×2 (08:23→21:16)
--- NOTE | 2016-12-02 08:56 | PCM.CORE ---
Physician DVT/VTE - Nurse DVT Assessment & Total Each Risk Factor Represents 2 Points: Age 60-74, Malignancy (present/past) Each Risk Factor is 1 Point: Hx of Inflammatory Bowel Disease, Obesity (BMI >25) , Serious Lung disease (pnemonia <1month, COPD, emphysema,etc) DVT Assessment Score: 7 - 5 or more Very High Risk Treatments: Sequential Compression Device Pharmacological: Enoxaparin 40mg SQ Daily
[2016-12-02] MEDS: INSULIN DEGLUDEC 30 UNIT SC SCH (09:22)
[2016-12-02] MEDS: ENOXAPARIN SODIUM 40 MG/0.4 ML SYG SUBCU SCH (09:23)
[2016-12-02] MEDS: FERROUS SULFATE 325 MG TAB PO SCH ×2 (09:26→16:39)
[2016-12-02] MEDS: CITALOPRAM HBR 20 MG TAB PO SCH (09:30)
[2016-12-02] MEDS: METOPROLOL SUCCINATE XL 100 MG TAB PO SCH ×2 (09:30→21:28)
[2016-12-02] MEDS: POTASSIUM CHLORIDE 20 MEQ TAB PO SCH ×2 (09:30→16:39)
[2016-12-02] MEDS: BIFIDOBACTERIUM INFANTIS 4 MG CAP PO SCH (09:31)
[2016-12-02] MEDS: MAGNESIUM CHLORIDE 64 MG TAB PO SCH (09:31)
[2016-12-02] MEDS: FUROSEMIDE 40 MG TAB PO SCH (09:31)
[2016-12-02] MEDS: ISOSORBIDE MONONITRATE (ISMO) 20 MG TAB PO SCH ×2 (09:31→16:38)
--- NOTE | 2016-12-02 13:50 | PN ---
DATE: 12-02-16 SUBJECTIVE: The patient is reevaluated with Dr. Pineda. Significant improvement in the movement of the back with less pain and tightness and swelling. Still indurated. History of an inclusion cyst midline present for a number of years which has had flare-ups in the past with similar swelling and discomfort but not to this extent. It may eventually benefit by cystectomy when completely cleared of the underlying infection. Appetite it good. She is much more alert and states that she feels better today. OBJECTIVE: Afebrile, pulse 74, blood pressure 126/71, pulse oximetry 97% on room air. Her weight is 97 kg. Fairly good intake and output is noted. She is completing her third day of IV vancomycin therapy and reevaluation in the morning. Still indurated in the back but much less erythema and much improved functional movements of her upper extremities because of the discomfort. Encouraged increased activity today. LABORATORY: Her sugar fasting this morning was 108 which Is improved from 197 yesterday. Recheck lab in the morning. Blood and urine cultures are negative at 48 hours. ASSESSMENT: 1. Acute cellulitis involving a large area of the mid upper back having failed outpatient therapy and worsening clinically probably centered around an infected inclusion cyst which has been present for years and may eventually require cystectomy procedure by Dr. Pineda. Now completing third day of vancomycin. Cultures are negative up to this point yet showing clinical improvement. 2. History of breast cancer on the left side with radical surgery now undergoing several years of chemotherapy with most recent chemotherapy of the 2 to 3 days before admission being held because of the infected cyst with cellulitis of her back. 3. Significant pancytopenia probably resulting from the jose guadalupe of chemical effect on her bone marrow of the chemotherapy from the week previously showing slight improvement with reevaluation in the morning before discharge. 4. Diabetes mellitus type 2 on a sliding scale stabilized at this point. 5. History of hypertension. 6. History of gastroesophageal reflux disease. 7. History of congestive heart failure of undetermined etiology. 8. Chronic obstructive pulmonary disease, stable. PLAN: Will reevaluated in the morning with lab studies to ascertain improvement in the pancytopenia which is important in the treatment course. May eventually benefit by discharge home with followup in the clinic with Dr. Pineda as needed in Dr. Alford absence. May benefit from doxycycline plus clindamycin since the patient feels that she was having a GI upset from the Rifampin given as an outpatient and having failed outpatient therapy. Reevaluation in the morning important. #[id number] [facility]
[2016-12-02] MEDS: ACETAMINOPHEN 500 MG TAB PO PRN (18:10)
[2016-12-02] MEDS: NON-FORMULARY MEDICATION 1 EA MIS (Fluticasone Furoate-Vilanterol [Breo Ellipta 100-25 Mcg INH SCH (21:16)
[2016-12-02] MEDS: MIRTAZAPINE 15 MG TAB PO SCH (21:28)
[2016-12-02] MEDS: ATORVASTATIN 20 MG TAB PO SCH (21:28)
[2016-12-02] MEDS: MONTELUKAST 10 MG TAB PO SCH (21:28)
[2016-12-03] MEDS ORDERED: VANCOMYCIN HCL INJ 1,000 MG VIAL IVPB ONE ×2 (03:27→16:19)
[2016-12-03] MEDS ORDERED: SODIUM CHLORIDE 0.9% 250ML 250 ML ONE ×2 (03:27→16:18)
[2016-12-03] MEDS: VANCOMYCIN HCL INJ 1,000 MG in SODIUM CHLORIDE 0.9% 250ML 250 ML IVPB SCH ×2 (04:02→16:32)
[2016-12-03] MEDS: ACETAMINOPHEN 500 MG TAB PO PRN ×3 (05:06→16:50)
[2016-12-03] MEDS: PANTOPRAZOLE SODIUM TAB 40 MG PO SCH ×2 (06:16→16:50)
[2016-12-03] MEDS: INSULIN LISPRO 100 UNITS/ML PEN SUBCU SCH ×3 (08:11→16:33)
[2016-12-03] MEDS: FERROUS SULFATE 325 MG TAB PO SCH ×2 (08:13→16:50)
[2016-12-03] MEDS: POTASSIUM CHLORIDE 20 MEQ TAB PO SCH ×2 (08:13→16:51)
[2016-12-03] MEDS: ALBUTEROL SULFATE 2.5 MG/3 ML VIAL NEB SCH (08:16)
[2016-12-03] MEDS: FUROSEMIDE 40 MG TAB PO SCH (09:25)
[2016-12-03] MEDS: ISOSORBIDE MONONITRATE (ISMO) 20 MG TAB PO SCH ×2 (09:28→16:50)
[2016-12-03] MEDS: MAGNESIUM CHLORIDE 64 MG TAB PO SCH (09:30)
[2016-12-03] MEDS: BIFIDOBACTERIUM INFANTIS 4 MG CAP PO SCH (09:30)
[2016-12-03] MEDS: METOPROLOL SUCCINATE XL 100 MG TAB PO SCH (09:30)
[2016-12-03] MEDS: CITALOPRAM HBR 20 MG TAB PO SCH (09:30)
[2016-12-03] MEDS: guaiFENesin ER TAB 600 MG TAB PO SCH (09:33)
[2016-12-03] MEDS: INSULIN DEGLUDEC 30 UNIT SC SCH (09:33)
[2016-12-03] MEDS: ENOXAPARIN SODIUM 40 MG/0.4 ML SYG SUBCU SCH (09:44)
[2016-12-03] MEDS ORDERED: DOXYCYCLINE HYCLATE CAP 100 MG CAP PO SCH (11:30)
[2016-12-03] MEDS ORDERED: CLINDAMYCIN HCL CAP 150 MG CAP ONE (12:28)
[2016-12-03] MEDS ORDERED: HEPARIN SODIUM 100 U/ML 5 ML SYG IV ONE ×3 (13:13→18:50)
[2016-12-03] MEDS ORDERED: CLINDAMYCIN HCL CAP 150 MG CAP PO SCH (15:00)
[2016-12-03 16:44] VITALS: O2SAT 99
[2016-12-03 18:42] VITALS: TEMP 98.1
[2016-12-04 05:46] VITALS: BP 129/74
--- NOTE | 2016-12-10 14:24 | DS ---
SUPERVISING PHYSICIAN: Valente Murphy MD DISCHARGE DIAGNOSIS: 1. Acute cellulitis involving a large area of the mid upper back, having failed to respond to outpatient and showing clinical worsening that is centered around an infected inclusion cyst, which has been present for many years, showing good improvement with conservative treatment with antibiotics with vancomycin. 2. History of left breast cancer with radical surgery, now undergoing several years of chemotherapy with most recent chemotherapy 2 to 3 days before admission, being held due to the infected cyst with cellulitis of the back. 3. Significant pancytopenia, probably resulting from a jose guadalupe of the chemical effect on the bone marrow with chemotherapy from a week previously, showing improvement. 4. Diabetes mellitus, type 2, on sliding scale, stabilized. 5. History of hypertension. 6. History of gastroesophageal reflux disease. 7. History of congestive heart failure of undetermined etiology with no echocardiogram for review. 8. Chronic obstructive pulmonary disease, stable. HISTORY OF PRESENT ILLNESS: Ms. Donato is a 61-year-old, female patient with a longstanding history of breast cancer and diabetes who saw her primary care physician, Dr. Alford, in the office on Saturday for an DIC of the back. He gave her Rifampin and doxycycline. She thinks the symptoms have been going on for about a month, but it was about 10 cm in diameter with fluctuance. On the morning of admission, she actually called EMS because she quite nauseated and felt she was having an adverse reaction to the Rifampin as she had taken doxycycline in the past without and problems. She has also had a low blood sugar. The ambulance did not take her to the facility and she recovered quite nicely after she called them. She did go to [place] on the date of admission for her scheduled chemotherapy treatment with Dr. Joshua Lazar, her oncologist. She had to stop long-term between [place] and [place] due to low blood sugar. Once she got to Dr. Lazar' office, Shena Ventura, Nurse Practitioner, examined her back and the area of cellulitis extended to most of her upper back. It was quite inflamed as well as edematous. There was no noted fluctuance. Shena Ventura called to have the patient admitted directly for further outpatient treatment with antibiotic therapy for her cellulitis of the upper back as well as receive IV vancomycin treatment. She was admitted in stable condition. LABORATORY: White count on admission was 6.4. She did show a slight improvement and prior to discharge, white count was 3.0. Hemoglobin and hematocrit were stable at 10.3 and 32.3 at discharge. Platelet count 102,000. Differential without left shift. Chemistries on admission showed normal electrolytes with glucose 137. AST was slightly elevated at 44, alkaline phosphatase up to 409. C-reactive protein was 2.8. After initiation of treatment and prior to discharge, electrolytes had shown normalization with a 3.8 potassium, BUN 15, creatinine 0.8. Glucoses ranged from 140s to 198. Urinalysis was within normal limits. TOXICOLOGY: She had a vancomycin trough drawn on 12/01/16 that was 9.2 and again on 12/03/16 it was 14.5. MICROBIOLOGY: Urine culture was negative at 48 hours. She had two sets of blood cultures negative at five days. RADIOLOGY: There were no radiographic studies completed. CONSULTATION: Surgery, Vasquez Pineda MD. Please refer to his consultation for full details. HOSPITAL COURSE: Ms. Donato is a 61-year-old, female that was admitted to the hospital as noted in her history of present illness for cellulitis of the upper back. She was started on vancomycin and showed good improvement of the area. It was felt on the morning of discharge that she could continue with outpatient treatment plan and was started on clindamycin and doxycycline to ensure that she would tolerate both medications prior to discharge. After time enough to determine her tolerance of the medications, she was doing well and was felt clinically well enough to be discharged. PLAN: Ms. Donato was discharged home to have close clinical followup with Dr. Alford in two weeks as scheduled. She was to resume her home medications as instructed and start new prescriptions as directed. She was to return to the hospital should she have any concerning symptoms. At discharge, new prescriptions included: 1. Align 4 mg daily, #60. 2. Clindamycin 300 mg 3 times daily, #30. 3. Doxycycline hyclate 100 mg twice daily, #20. Diet at discharge was 1800 calorie ADA diet as tolerated. Activity was to increase as tolerated. Condition at discharge was stable and improved. [facility][id number] [facility]
== END 2016-12-03 18:10 | disposition home or self-care (01) | DRG 602 ==
LOC: MS 14:37
PROVIDERS: ADMIT Nurse Practitioner Acute Care; ATTEND Nurse Practitioner Family
DX: L03.312 Cellulitis of back [any part except buttock and flank] (principal); D61.810 Antineoplastic chemotherapy induced pancytopenia; L72.0 Epidermal cyst; C50.912 Malignant neoplasm of unspecified site of left female breast; T45.1X5A Adverse effect of antineoplastic and immunosuppressive drugs, initial encounter; E11.9 Type 2 diabetes mellitus without complications; I11.0 Hypertensive heart disease with heart failure; I50.9 Heart failure, unspecified; J44.9 Chronic obstructive pulmonary disease, unspecified; K21.9 Gastro-esophageal reflux disease without esophagitis; I25.10 Atherosclerotic heart disease of native coronary artery without angina pectoris; Y92.9 Unspecified place or not applicable; Z92.21 Personal history of antineoplastic chemotherapy; Z90.12 Acquired absence of left breast and nipple; Z88.0 Allergy status to penicillin; Z88.2 Allergy status to sulfonamides; Z88.8 Allergy status to other drugs, medicaments and biological substances; Z87.891 Personal history of nicotine dependence; Z95.828 Presence of other vascular implants and grafts

== ENCOUNTER → 2016-12-17 | Outpatient (CLI) | payer MEDICARE, MEDICAID | LOC: GMAJ 10:21 | PROVIDERS: ATTEND Family Medicine | DX: J44.9 Chronic obstructive pulmonary disease, unspecified (principal); E11.42 Type 2 diabetes mellitus with diabetic polyneuropathy; I10 Essential (primary) hypertension ==

== ENCOUNTER → 2017-06-13 | Outpatient (CLI) | payer MEDICARE, MEDICAID ==
--- NOTE | 2017-06-13 16:11 | CT ---
EXAM DESCRIPTION: Chest w/Contrast : Computed Tomography. CLINICAL HISTORY: C50.112 COMPARISON: CT scan chest with contrast 08/30/2016. TECHNIQUE: Spiral-axial scans at 5.0 mm intervals through the lungs and thorax with IV contrast. 2.5 mm lung algorithm axial reconstructions. Coronal and sagittal 2.0 Mm reconstructions. No adverse reactions. Total Exam DLP: 822.75 mGy-cm. This exam was performed according to our departmental dose-optimization program which includes automated exposure control, adjustment of the mA and/or kV according to patient size and/or use of iterative reconstruction technique; to reduce radiation dose to as low as reasonably achievable (ALARA). FINDINGS: Small linear densities in the lung bases.. No abnormal nodule, pleural mass or infiltrate. No pleural effusion or pneumothorax bilaterally. Homogeneous enhancement of the thyroid gland. No soft tissue masses in the base of the neck. Prior mastectomy left breast with pectoral muscle preserved. No axillary masses. Atherosclerotic calcifications in the aorta. Coronary artery calcifications. No mediastinal or hilar soft tissue masses. No abnormal enhancement in the subcutaneous tissues. VAD tip in the proximal SVC with injection port in the upper right breast. Diffuse heterogeneous sclerosis in the T8 vertebral body which appears to be extending into the bilateral pedicles. Few Small lytic areas. No compression fracture. Anterior spondylosis at multiple levels of thoracic spine including T7-8 and T8-9. Also facet degeneration multiple levels. No sclerotic or destructive lesions in the ribs or sternum. Mixed lytic and sclerotic appearance of the right humeral head. IMPRESSION: 1. No abnormal nodules masses or infiltrates in the lungs bilaterally. No pleural effusion. No hilar or mediastinal masses. No soft tissue masses in the region of prior left breast mastectomy. 2. Mixed lesion mostly sclerotic in the T8 vertebral body.. No compression deformity. Similar appearance on the prior study. Mixed lytic and sclerotic lesion in the included right humeral head, also appears stable. Thoracic and cervical spondylosis but no other spinal lesions. Electronically signed by: Uday Rose MD 06/13/2017 4:10 PM [facility]
--- NOTE | 2017-06-13 16:30 | CT ---
EXAM DESCRIPTION: Abdomen/Pelvis w/wo Contrast: Computed Tomography. CLINICAL HISTORY: C50.112 COMPARISON: CT abdomen and pelvis with IV contrast 09/14/2015. CT scan of the chest with IV contrast today. TECHNIQUE: Spiral-axial scans at 5.0 mm intervals through the abdomen and pelvis before and after standard dose nonionic IV contrast. No oral contrast. Coronal and sagittal 2.0 mm reconstructions. 5 mm five-minute Delayed helical-axial scans, liver through the pubic symphysis. No adverse reactions. Total Exam DLP 3199 mGy - cm. This exam was performed according to our departmental CT dose-optimization program which includes automated exposure control, adjustment of the mA and/or kV according to patient size and/or use of iterative reconstruction technique; to reduce radiation dose to as low as reasonably achievable (ALARA). FINDINGS: Liver, Stomach, Spleen, Adrenal Glands: Minimal fatty infiltration of the liver. Long axis of the right lobe is 22.3 cm. Other solid organs and stomach are unremarkable. Pancreas, Gallbladder, Ducts: Surgical clips gallbladder fossa with no fluid. Minimal dilation of the common bile duct. Kidneys and Ureters: 1.5 cm cyst upper pole posterior left kidney and other smaller cysts bilaterally. Mesentery: No stranding or fascial thickening. No free air or free fluid. Aorta: Moderate atherosclerotic calcification mid and distally extending into the common iliac arteries. Small Bowel: Normal caliber. Terminal Ileum/Cecum: Appendix is not seen. Normal density of the surrounding fat. Colon: Normal caliber distal diverticula with no complications. Pelvic Organs: Uterus retroverted or retroflexed. Follicle in the right ovary. Left ovary unremarkable. No fluid in the cul-de-sac. No asymmetric pelvic mass. Spine and Bony Pelvis: Lumbar spondylosis and dextroscoliosis. Mixed sclerotic lesion heterogeneous with possible lytic areas S1 sacral segment. Asymmetric involvement of the sacral ala in the left iliac wing. No fractures.. Abdominal Wall/Back Soft Tissues: Diastases of the abdominal wall at the umbilicus but no bowel in the involved. No enhancing or nonenhancing lesions in the subcutaneous adipose. IMPRESSION: 1. Mixed sclerotic and lytic lesions in the sacrum more left than right and also the left iliac wing appear to be more sclerotic on this examination. Degree of bony involvement appears stable. Radionuclide bone scan also performed on this visit. Please refer to those findings. 2. Moderate hepatomegaly with fatty infiltration/steatosis also seen on the prior study. No focal lesions. 3. 1.5 cm cyst left kidney seen as low-density in the nonenhancing kidney on the prior study. 4. Diverticulosis of the distal colon is stable. Stable diastases of the abdominal wall at the umbilicus. Follicle right ovary not seen on prior study but was a noncontrast study. Electronically signed by: Uday Rose MD 06/13/2017 4:30 PM [facility]
--- NOTE | 2017-06-14 09:52 | NM ---
EXAM DESCRIPTION: Bone Scan, Whole Body CLINICAL HISTORY: C50.112 COMPARISON: CT scan of the chest abdomen and pelvis on the same visit. Whole body radionuclide bone scan 08/30/2016. TECHNIQUE: Patient injected with 26 mCi of technetium 99M MDP IV. Delayed gamma camera images from various planes were obtained 3 hr after injection. FINDINGS: Focal activity uptake in the posterior left iliac bone abutting the SI joint. This is consistent with abnormality seen on the CT scan. Decreased uptake in the right humeral head compared to the left which may reflect an active bone destruction seen on the CT scan. No activity/uptake at the T8 vertebral level. The vertebra appeared stable on the CT scan. No new focal activity or uptake in the long bones, flat bones, skull, or axial skeleton. No abnormal soft tissue activity. IMPRESSION: 1. Activity in the medial left iliac bone in the region of metastatic disease seen on CT scan. Activity not as prominent as on the prior scan in August 2016. 2. No increased uptake activity in the right humeral head which appears stable on CT scans. 3. No increased uptake activity in the T8 vertebral body which appears stable and CT scans. 4. Remainder of examination is unremarkable. Electronically signed by: Uday Rose MD 06/14/2017 9:51 AM TAILER IN
== END ==
LOC: CT 10:30
PROVIDERS: ATTEND Internal Medicine Hematology & Oncology
DX: C50.112 Malignant neoplasm of central portion of left female breast (principal); R16.0 Hepatomegaly, not elsewhere classified; K57.30 Diverticulosis of large intestine without perforation or abscess without bleeding; N28.1 Cyst of kidney, acquired

== ENCOUNTER → 2017-09-12 | Outpatient (CLI) | payer MEDICARE, MEDICAID | LOC: GMAB 16:38 | PROVIDERS: ATTEND Surgery | DX: L02.232 Carbuncle of back [any part, except buttock and flank] (principal) ==

== ENCOUNTER 2017-10-17 05:39 | Day surgery (SDC) | payer MEDICARE, MEDICAID ==
[2017-10-17] MEDS ORDERED: LIDOCAINE 1% 50 ML VIAL INJ ONE ×2 (06:56→08:33)
[2017-10-17] MEDS ORDERED: SODIUM BICARBONATE VIAL 50 MEQ/50 ML VIAL ONE (06:56)
[2017-10-17] MEDS ORDERED: SODIUM BICARBONATE VIAL 50 MEQ/50 ML VIAL IV ONE (08:33)
[2017-10-17 09:59] VITALS: BP 128/63; TEMP 98.4; O2SAT 97
--- NOTE | 2017-10-17 10:39 | OP ---
DATE OF PROCEDURE: 10/17/17 PREOPERATIVE DIAGNOSIS: 1. Inclusion cyst of the back status post infection and spontaneous drainage on one. POSTOPERATIVE DIAGNOSIS: 1. Inclusion cyst of the back status post infection and spontaneous drainage on one. PROCEDURE: 1. Excision of inclusion cyst of the back times two. SURGEON: Vasquez Pineda MD. TAX CLERK: None. ANESTHESIA: Local infiltration of 1% lidocaine with bicarb. INDICATION: The patient is a 62-year-old female who I have previously treated for carcinoma of the breast. She also has diabetes and multiple other medical issues including chronic obstructive pulmonary disease that is oxygen dependent. She developed a tender mass on her back that was erythematous. It spontaneously drained. She has been treated with Levaquin and it has improved significantly. There is still some erythema and drainage. She also has an inclusion cyst in the upper back which has had no problems, but it is quite large. She was brought to the surgical natty for excision of both of these. The patient does understand that here is a higher risk of wound infection in the lower wound that has been open and draining. FINDINGS: The right upper back lesion excised was about 2.2 cm and the incision is 2.4 cm. The lower back area of excision was approximately 4.2 cm and the closed incision is 5.9 cm. PROCEDURE: After the patient was brought to the Surgical Suite and placed in the prone position, a surgical time-out was taken. She was prepped prior to the surgical time-out. She took her Levaquin this morning preoperatively. The upper lesion was marked for an elliptical incision. It was the infiltrated with local anesthesia and incised with a sharp knife. Dissection was carried down through the skin and into the subcutaneous tissue using electrocautery. The lesion was removed. There was some rupture during the removal process. The wound was then irrigated copiously with lidocaine. Hemostasis was obtained with electrocautery. At this point, the subcutaneous tissue was reapproximated with interrupted 3-0 Vicryl. Skin edges were reapproximated with 3-0 Nylon vertical mattress sutures. Sterile dressing was applied. At this point, the lower incision was again marked with a marking pen, then infiltrated with local anesthesia and again incised with a sharp knife. Dissection was carried out using electrocautery. When hemostasis was noted to be adequate, the wound was irrigated with lidocaine. Hemostasis was still adequate. At this point, the subcutaneous tissue were reapproximated with interrupted 3-0 Vicryl sutures in 2 layers and the skin was approximated with interrupted 3-0 Nylon vertical mattress sutures. Sterile pressure dressing was applied. The patient was then taken back to the Ambulatory Unit in stable condition. Estimated blood loss was approximately 100 mL. All sponge, needle and instrument counts were correct. #[id number] [facility]
== END 2017-10-17 10:15 | disposition home or self-care (01) ==
LOC: AMB 05:39
PROVIDERS: ATTEND Surgery
DX: L72.0 Epidermal cyst (principal); E11.9 Type 2 diabetes mellitus without complications; I11.0 Hypertensive heart disease with heart failure; I50.9 Heart failure, unspecified; J44.9 Chronic obstructive pulmonary disease, unspecified; M06.9 Rheumatoid arthritis, unspecified; Z99.81 Dependence on supplemental oxygen; Z88.0 Allergy status to penicillin; Z88.5 Allergy status to narcotic agent; Z88.2 Allergy status to sulfonamides; Z88.8 Allergy status to other drugs, medicaments and biological substances; Z79.4 Long term (current) use of insulin; Z79.899 Other long term (current) drug therapy

== ENCOUNTER → 2018-01-15 | Outpatient (CLI) | payer MEDICARE, MEDICAID | LOC: GMAJ 14:28 | PROVIDERS: ATTEND Family Medicine | DX: J44.9 Chronic obstructive pulmonary disease, unspecified (principal) ==

== ENCOUNTER → 2018-02-10 | Outpatient (CLI) | payer MEDICARE, MEDICAID | LOC: NC 16:13 | PROVIDERS: ATTEND Family Medicine | DX: I50.9 Heart failure, unspecified (principal); C50.112 Malignant neoplasm of central portion of left female breast; C79.51 Secondary malignant neoplasm of bone ==

== ENCOUNTER → 2018-02-24 | Outpatient (CLI) | payer MEDICARE, MEDICAID | LOC: NC 15:48 | PROVIDERS: ATTEND Family Medicine | DX: R30.0 Dysuria (principal) ==

== ENCOUNTER → 2018-03-05 | Outpatient (CLI) | payer MEDICARE, MEDICAID | LOC: NC 13:46 | PROVIDERS: ATTEND Family Medicine | DX: C50.112 Malignant neoplasm of central portion of left female breast (principal); C79.51 Secondary malignant neoplasm of bone; J44.9 Chronic obstructive pulmonary disease, unspecified; I50.9 Heart failure, unspecified ==

== ENCOUNTER → 2018-03-18 | Outpatient (CLI) | payer MEDICARE, MEDICAID | LOC: NC 14:27 | PROVIDERS: ATTEND Internal Medicine Hematology & Oncology | DX: R30.0 Dysuria (principal) ==

== ENCOUNTER → 2018-03-20 | Outpatient (CLI) | payer MEDICARE, MEDICAID ==
--- NOTE | 2018-03-20 12:05 | CT ---
EXAM DESCRIPTION: Chest w/Contrast CLINICAL HISTORY: BREAST CANCER COMPARISON: June 13, 2017 TECHNIQUE: Postcontrast CT images of the chest are obtained using standard imaging protocol. This exam was performed according to our departmental dose-optimization program, which includes automated exposure control, adjustment of the mA and/or kV according to patient size and/or use of iterative reconstruction technique . FINDINGS: Atherosclerotic disease is stable from previous. No pathologically enlarged mediastinal, hilar, or axillary lymphadenopathy seen. Right subclavian Mediport is again seen. No pleural or pericardial effusion. Liver is enlarged with moderate heterogeneous diffuse fatty infiltration seen. Stable right adrenal gland nodule measuring 14 mm is again seen. Cholecystectomy changes are noted. The lungs are normally aerated without acute appearing infiltrate or consolidation. No worrisome noncalcified pulmonary nodules are seen. Osseous structures again demonstrate mixed mostly sclerotic T8 vertebral body lesion without compression deformity. Moderate degenerative changes of the spine are seen. No new osseous lesions are seen. IMPRESSION: Stable postcontrast CT of the chest. Mostly sclerotic lesion at T8 is similar in appearance to previous examination. No new osseous lesions are seen. Hepatomegaly with diffuse fatty infiltration of the liver. Stable right adrenal gland nodule. No CT evidence of metastatic disease otherwise seen. Electronically signed by: George Heart MD 03/20/2018 12:04 PM [facility]
== END ==
LOC: CT 08:30
PROVIDERS: ATTEND Internal Medicine Hematology & Oncology
DX: C50.112 Malignant neoplasm of central portion of left female breast (principal)

== ENCOUNTER → 2018-03-24 | Outpatient (CLI) | payer MEDICARE, MEDICAID | LOC: NC 11:53 | PROVIDERS: ATTEND Family Medicine | DX: C50.112 Malignant neoplasm of central portion of left female breast (principal); C79.51 Secondary malignant neoplasm of bone; J44.9 Chronic obstructive pulmonary disease, unspecified; I11.0 Hypertensive heart disease with heart failure; I50.9 Heart failure, unspecified; E11.42 Type 2 diabetes mellitus with diabetic polyneuropathy; I25.10 Atherosclerotic heart disease of native coronary artery without angina pectoris; D51.0 Vitamin B12 deficiency anemia due to intrinsic factor deficiency ==

== ENCOUNTER → 2018-07-15 | Outpatient (CLI) | payer MEDICARE, MEDICAID ==
--- NOTE | 2018-07-15 12:17 | CT ---
EXAM DESCRIPTION: Head w/wo Contrast CLINICAL HISTORY: HEADACHES COMPARISON: Previous CT head without contrast December 05, 2015 TECHNIQUE: CT brain is performed prior to and following IV administration routine adult dose of nonionic iodinated IV contrast. FINDINGS: Ventricles and sulci are unremarkable on precontrast images of the brain. There is no hemorrhage or mass. There are no white matter abnormalities detected. The visualized paranasal sinuses and the mastoids are clear. After IV contrast, normal enhancement of the intracranial vessels is noted. Normal blair-white matter differentiation. Ventricles are mildly prominent but unchanged from previous study. No enhancing intracranial mass lesion. No focal edema. Normal blair-white matter differentiation. Small lucencies in the right and left parietal bones are indeterminate and could represent small metastases. Patient has a history of metastatic bone disease. Left scalp soft tissue lesion measures 1.5 cm on present study compared to 1.9 cm on the previous study. Correlate with dermatologic exam. Coronal and sagittal reformatted images confirm the findings. IMPRESSION: No acute intracranial pathologic process. Left frontal scalp lesion unchanged from previous. Small skull lesions are indeterminate. This exam was performed according to our departmental dose-optimization program, which includes automated exposure control, adjustment of the mA and/or kV according to patient size and/or use of iterative reconstruction technique. Electronically signed by: Vinny Rothman MD 07/15/2018 12:14 PM GAS SCRUBBER OPERATOR
== END ==
LOC: CT 11:00
PROVIDERS: ATTEND Internal Medicine Hematology & Oncology
DX: R51 Headache (principal); C50.112 Malignant neoplasm of central portion of left female breast; L98.9 Disorder of the skin and subcutaneous tissue, unspecified

== ENCOUNTER → 2018-07-29 | Outpatient (CLI) | payer MEDICARE, MEDICAID | LOC: NC 10:30 | PROVIDERS: ATTEND Family Medicine | DX: I50.9 Heart failure, unspecified (principal); C50.112 Malignant neoplasm of central portion of left female breast; J44.9 Chronic obstructive pulmonary disease, unspecified; I11.0 Hypertensive heart disease with heart failure; E11.42 Type 2 diabetes mellitus with diabetic polyneuropathy ==

== ENCOUNTER → 2018-12-01 | Outpatient (CLI) | payer MEDICARE, MEDICAID | LOC: NC 08:47 | PROVIDERS: ATTEND Family Medicine | DX: C50.112 Malignant neoplasm of central portion of left female breast (principal); I11.9 Hypertensive heart disease without heart failure; I50.9 Heart failure, unspecified; E11.42 Type 2 diabetes mellitus with diabetic polyneuropathy; I25.10 Atherosclerotic heart disease of native coronary artery without angina pectoris ==

== ENCOUNTER → 2019-03-10 | Outpatient (CLI) | payer MEDICARE, MEDICAID | LOC: NC 09:18 | PROVIDERS: ATTEND Family Medicine | DX: E11.42 Type 2 diabetes mellitus with diabetic polyneuropathy (principal); I11.0 Hypertensive heart disease with heart failure; I50.9 Heart failure, unspecified; C50.112 Malignant neoplasm of central portion of left female breast; E78.5 Hyperlipidemia, unspecified; E83.42 Hypomagnesemia ==

== ENCOUNTER → 2019-04-14 | Outpatient (CLI) | payer MEDICARE, MEDICAID | LOC: NC 14:50 | PROVIDERS: ATTEND Family Medicine | DX: R30.0 Dysuria (principal) ==

== ENCOUNTER → 2019-05-19 | Outpatient (CLI) | payer MEDICARE, MEDICAID | LOC: NC 18:53 | PROVIDERS: ATTEND Family Medicine | DX: C50.112 Malignant neoplasm of central portion of left female breast (principal); D51.0 Vitamin B12 deficiency anemia due to intrinsic factor deficiency ==

== ENCOUNTER → 2019-06-01 | Outpatient (CLI) | payer MEDICARE, MEDICAID ==
--- NOTE | 2019-06-02 07:56 | MRI ---
PROVIDED CLINICAL HISTORY/REASON FOR EXAM: BREAST CA TECHNIQUE: Multiplanar, multisequence MRI examination performed of the lumbar spine with and without intravenous contrast material. COMPARISON: 06/13/2017 FINDINGS: Five lumbar type vertebra are assumed. The termite control service representative L5/S1 disc is at axial T2 image three. Alignment: No acute subluxation. Minimal degenerative anterolisthesis of L4 on L5. Geographic Bone Lesions: Ill-defined area of diminished T1 and T2 signal with associated enhancement involving the left iliac bone and sacrum along the margins of the left sacroiliac joint. The enhancement extends into the left S1 neural foramen. Fracture: None present. Paraspinal Soft Tissues: Enhancement and edema like signal along the peripheral margins of the enhancing lesions as above. Retroperitoneum: Visible structures are unremarkable. Conus Medullaris: Termination at L1-L2 level. Morphology is normal. L1/2: Disc space narrowing with loss of disc T2 signal. Small symmetric disc bulge. Bilateral facet hypertrophy. No significant central canal or neural foraminal narrowing. L2/3: Mild loss of posterior disc space height. No significant central canal or neural foraminal narrowing. Bilateral facet hypertrophy. L3/4: Disc desiccation with loss of posterior disc space height. Small symmetric disc bulge osteophyte complex. Bilateral facet hypertrophy with thickening of the ligamentum flavum. No significant central canal stenosis. Mild bilateral neural foraminal narrowing. L4/5: Loss of disc space height and disc T2 signal. Diffuse symmetric disc bulge osteophyte complex. Bilateral facet hypertrophy with thickening of the ligamentum flavum. Mild central canal stenosis. Moderate bilateral neural foraminal narrowing. L5/S1: Disc space narrowing with endplate degenerative change and loss of disc T2 signal. Small symmetric disc bulge osteophyte complex. No significant central canal stenosis. Mild bilateral lateral recess stenosis. Bilateral facet hypertrophy. Mild bilateral neural foraminal narrowing. IMPRESSION: 1. Redemonstrated osseous metastatic disease with involvement of the left S1 sacrum and iliac bone with extension into the left S1 neural foramen. 2. Multilevel lumbar spondylosis most pronounced at L4/L5 and L5/S1 as above. Electronically signed by: Yahir Arias MD 06/02/2019 7:54 AM REPAIRER
== END ==
LOC: MRI 11:00
PROVIDERS: ATTEND Internal Medicine Hematology & Oncology
DX: C50.112 Malignant neoplasm of central portion of left female breast (principal); C79.51 Secondary malignant neoplasm of bone; M47.896 Other spondylosis, lumbar region

== ENCOUNTER → 2019-06-04 | Outpatient (CLI) | payer MEDICARE, MEDICAID ==
--- NOTE | 2019-06-05 10:43 | NM ---
EXAM DESCRIPTION: Bone Scan, Whole Body: Nuclear Medicine CLINICAL HISTORY: 64 years Female BREAST CA COMPARISON: Radionuclide bone scan June 2017. TECHNIQUE: Patient injected with 25.4 mCi of technetium 99M MDP IV. Delayed gamma camera images tab from various planes were obtained 3 hr after injection. FINDINGS: Increased activity/uptake of radiopharmaceutical in the posterior medial left iliac wing, left SI joint articular surfaces, and the left acetabular region. Increased activity in the facets of the right SI joint. Decreased activity in the left femoral head and neck compared to the right. Sporadic increased focal activity in the cervical thoracic and lumbar spine most likely degenerative. Activity in the right ankle bilateral knees and bilateral shoulders is most likely degenerative. Focal increased activity in the mid sternum versus the sternomanubrial junction. Normal soft tissue uptake in the kidneys, sinuses, as well as radiopharmaceutical accumulating in the urinary bladder. IMPRESSION: 1. Increased activity in the medial left posterior iliac bone and abutting the left SI joint may be progressing since the prior bone scan. There is also new increased activity at the junction of the left acetabulum and iliac bone. Decreased activity in the left femoral head and neck compared to the right and the left trochanteric region could indicate bone loss in the left femoral head and neck. Consider follow-up CT scan pelvic bone or pelvic MRI scan. 2. Increased activity in the midsternum versus sternomanubrial joint stable since the prior study. 3. Most likely degenerative activity in the cervical thoracic and lumbar spines. Electronically signed by: Uday Rose MD 06/05/2019 10:42 AM [facility]
== END ==
LOC: NM 09:00
PROVIDERS: ATTEND Internal Medicine Hematology & Oncology
DX: C50.112 Malignant neoplasm of central portion of left female breast (principal)

== ENCOUNTER 2019-08-21 16:14 | Outpatient (CLI) | payer MEDICARE, MEDICAID ==
[2019-08-21] MEDS ORDERED: SODIUM CHLORIDE 0.9% 1000ML 1,000 ML IVS ONE (16:30)
[2019-08-21 16:41] VITALS: BP 102/66; TEMP 96; O2SAT 97
[2019-08-21] MEDS ORDERED: HEPARIN SODIUM 100 U/ML 5 ML SYG IV ONE (16:43)
[2019-08-21] MEDS ORDERED: SODIUM CHLORIDE 0.9% (FLUSH) 10 ML SYG IV ONE (16:43)
== END 2019-08-21 18:00 | disposition home or self-care (01) ==
LOC: INFRM 16:14
PROVIDERS: ATTEND Nurse Practitioner Family
DX: T88.7XXA Unspecified adverse effect of drug or medicament, initial encounter (principal); C50.112 Malignant neoplasm of central portion of left female breast; Z92.3 Personal history of irradiation
CPT/HCPCS: 96360; J1642; J7030

== ENCOUNTER → 2019-09-01 | Outpatient (CLI) | payer MEDICARE, MEDICAID | LOC: NC 14:30 | PROVIDERS: ATTEND Family Medicine | DX: R30.0 Dysuria (principal) ==

== ENCOUNTER → 2019-11-24 | Outpatient (CLI) | payer MEDICARE, MEDICAID | LOC: NC 09:28 | PROVIDERS: ATTEND Family Medicine | DX: J44.9 Chronic obstructive pulmonary disease, unspecified (principal); I11.0 Hypertensive heart disease with heart failure; I50.9 Heart failure, unspecified; E11.42 Type 2 diabetes mellitus with diabetic polyneuropathy; C79.51 Secondary malignant neoplasm of bone; I25.10 Atherosclerotic heart disease of native coronary artery without angina pectoris; M06.9 Rheumatoid arthritis, unspecified ==

== ENCOUNTER → 2020-03-24 | Outpatient (CLI) | payer MEDICARE, MEDICAID | LOC: NC 11:06 | PROVIDERS: ATTEND Family Medicine | DX: J44.9 Chronic obstructive pulmonary disease, unspecified (principal); I11.0 Hypertensive heart disease with heart failure; I50.9 Heart failure, unspecified; E11.42 Type 2 diabetes mellitus with diabetic polyneuropathy; I25.10 Atherosclerotic heart disease of native coronary artery without angina pectoris; M06.9 Rheumatoid arthritis, unspecified ==

== ENCOUNTER → 2020-04-26 | Outpatient (CLI) | payer MEDICARE, MEDICAID | LOC: NC 17:43 | PROVIDERS: ATTEND Family Medicine | DX: R30.0 Dysuria (principal) ==

== ENCOUNTER → 2020-05-19 | Outpatient (CLI) | payer MEDICARE, MEDICAID ==
--- NOTE | 2020-05-20 13:36 | CT ---
EXAM DESCRIPTION: Abdomen/Pelvis w/Contrast: Computed Tomography. CLINICAL HISTORY: 65 years Female MALIGNANT NEOPLASM right adrenal gland mass. History of breast cancer. COMPARISON: CT scan of the chest with contrast December [address] scan abdomen and pelvis with contrast January 2020. TECHNIQUE: Spiral-axial scans at 2.5 mm intervals through the abdomen and pelvis, before IV contrast; 5.0 mm intervals through the abdomen and pelvis 60 seconds after Optiray 325 nonionic IV contrast. Coronal and sagittal 2.0 mm reconstructions. Delayed scans, 15 minutes after IV contrast, liver through the pelvis. Axial-spiral 2.5 mm. No adverse reactions. Total Exam DLP: 50 mGy-cm. This exam was performed according to our departmental dose-optimization program which includes automated exposure control, adjustment of the mA and/or kV according to patient size and/or use of iterative reconstruction technique; to reduce radiation dose to as low as reasonably achievable (ALARA). FINDINGS: Adrenal glands: Right adrenal gland is enlarged as using 4.1 x 3.9 cm in the axial plane and 4 cm in the coronal plane. 3.1 x 3.1 cm in the axial plane on study from January 2020. 1.5 x 1.2 cm in the axial plane on study from June 2017. Density is +15 before IV contrast, +49, 60 seconds after IV contrast, and +48, 15 minutes after IV contrast. No calcifications. No surrounding soft tissue fluid or inflammatory changes or abnormal contrast enhancement. Left adrenal gland is unremarkable. . Liver, Stomach, Spleen: Liver with minimal low density but no focal lesions. Craniocaudal axis of the right lobe is 21.4 cm. Stomach mildly distended with no abnormal enhancement. Spleen is negative. Pancreas, Gallbladder, Ducts: Surgical clips in the gallbladder fossa with no fluid. Pancreas and negative. Kidneys and Ureters: Multiple cysts bilaterally but otherwise unremarkable. Mesentery: No free air or free fluid. No fatty stranding. Aorta: Moderate atherosclerotic calcifications with moderate narrowing distally. Minimal calcification of the ostia of the major branch vessels. Small Bowel: No significant distention or air-fluid levels. Fecalization distal ileum. Terminal Ileum/Cecum: Fecalization with no significant associated obstruction. Appendix not seen. No inflammatory changes. Colon: Fecal matter throughout. Radiodense medication/food visualized. Diverticula descending colon and sigmoid. Moderate redundancy of the sigmoid. No complications. Pelvic Organs: Uterus is retroflexed. Ovaries are not well seen. No free fluid. No radiodense stones in the urinary bladder. No new masses. Spine and Bony Pelvis: Dextroscoliosis lumbar spine with endplate spurs at several levels. Lung bases and pleura, Abdominal Wall/Back Soft Tissues: Diastases at the umbilicus but no bowel incarceration. Irregular enhancing mass measuring 2.6 x 2.0 cm in the region of the left inguinal canal with minimally ill-defined margins and adjacent fatty stranding. 3 cm craniocaudal axis. No calcification. Prior left mastectomy. IMPRESSION: 1. Enlarging solid mass in the right adrenal gland since June 2017 with maximum diameter 4 cm. No calcification, no fluid, abnormal enhancement or fatty stranding around the mass. Absolute percentage washout 34% which is consistent with nonadenoma/primary tumor/metastasis. Metastasis can be related to history of breast cancer. 2. 3 cm irregularly enhancing mass in the left inguinal region with appearance of the mass and surrounding fatty tissues suggesting malignancy or inflammatory process. Tissue sampling is recommended. 3. No fluid or masses or inflammatory changes in the peritoneum or pelvis. Electronically signed by: Uday Rose MD 05/20/2020 1:34 PM [facility]
== END ==
LOC: CT 09:51
PROVIDERS: ATTEND Family Medicine
DX: C50.112 Malignant neoplasm of central portion of left female breast (principal); E27.9 Disorder of adrenal gland, unspecified; R19.09 Other intra-abdominal and pelvic swelling, mass and lump

== ENCOUNTER → 2020-06-15 | Outpatient (CLI) | payer MEDICARE, MEDICAID | LOC: NC 11:25 | PROVIDERS: ATTEND Family Medicine | DX: D64.9 Anemia, unspecified (principal); D69.6 Thrombocytopenia, unspecified; I50.9 Heart failure, unspecified; E11.9 Type 2 diabetes mellitus without complications ==

== ENCOUNTER → 2020-06-16 | Outpatient (CLI) | payer MEDICARE, MEDICAID ==
--- NOTE | 2020-06-16 15:14 | OP ---
DATE OF PROCEDURE: 06/16/20 PREOPERATIVE DIAGNOSIS: 1. Lymphadenopathy with history of metastatic breast cancer. POSTOPERATIVE DIAGNOSIS: 1. Lymphadenopathy with history of metastatic breast cancer. PROCEDURE: 1. Sonographically guided needle core biopsy of left inguinal lymph node. SURGEON: Vasquez Pineda MD FIELD MARKETING MANAGER: None. ANESTHESIA: Local infiltration with 1% lidocaine. INDICATION: The patient is a 65-year-old female with known bony metastasis from carcinoma of the left breast. She has developed adenopathy, largest in the left groin and a growing left adrenal mass. After evaluation by her oncologist, she was brought to the Ultrasound Suite today for sonographically guided biopsy of the left inguinal lymph node. FINDINGS: Two excellent cores were taken. PROCEDURE: The patient was brought to the Ultrasound Suite and placed in the supine position. The left groin was inspected with the ultrasound device and the large lymph node was identified. The skin lateral to the lymph node and ultrasound device was prepped with Betadine and draped. Local infiltration of anesthesia was then obtained with 1% lidocaine. A 25-gauge needle was introduced and the path was infiltrated with local anesthesia. A stab wound was then made with an 11 blade and 2 passes were made with the biopsy needle, taking excellent cores. A small amount of bleeding was controlled with pressure and then a single suture of 4-0 Nylon at the stab wound site. Sterile dressing was applied. The specimens were sent for pathological evaluation. The patient was discharged home and told to go home, rest and use an ice pack the remainder of the day. She is to followup in 6 days to evaluate the path report and remove the suture. #[id number] [facility]
--- NOTE | 2020-06-17 13:25 | US ---
EXAM DESCRIPTION: Biopsy/Needle Guidance: ULTRASOUND. CLINICAL INFORMATION: 65 years Female. . Left inguinal lymph node mass. Metastatic breast cancer. Right adrenal gland mass. COMPARISON: CT scan of abdomen and pelvis May 19. TECHNIQUE: Procedure performed by referring physician Dr. Pineda during ultrasound-guided needle core biopsy left inguinal mass. Transcutaneous scanning: Meléndez-scale and Doppler modes.. Mass well demonstrated .In the left groin, hypoechoic with irregular margins and vascularity. No complicating process is demonstrated. Please refer to physician's procedure note for specific details. 10 permanent images of this procedure are stored in the patient's medical record. IMPRESSION: Successful, ultrasound-guided core biopsy of left inguinal mass by Dr. Pineda. Pathology results pending at remote pathology laboratory. Electronically signed by: Uday Rose MD 06/17/2020 1:24 PM COMMODITIES CLERK
== END ==
LOC: US 14:21
PROVIDERS: ATTEND Surgery
DX: C77.4 Secondary and unspecified malignant neoplasm of inguinal and lower limb lymph nodes (principal); C50.412 Malignant neoplasm of upper-outer quadrant of left female breast

== ENCOUNTER 2020-07-01 17:42 | Emergency (ER) | payer MEDICARE, MEDICAID ==
[2020-07-01] MEDS ORDERED: diphenhydrAMINE HCL 25 MG CAP PO ONE (17:55)
[2020-07-01] MEDS ORDERED: predniSONE 20 MG TAB PO ONE (17:55)
[2020-07-01] MEDS ORDERED: ACETAMINOPHEN 325 MG TAB PO ONE (17:55)
--- NOTE | 2020-07-01 19:01 | RAD ---
EXAMINATION: Chest x-ray one view. INDICATION: Symptomatic anemia COMPARISON: 05/15/2016 TECHNIQUE: Frontal radiograph chest. FINDINGS: Right Mediport with tip in the SVC. The cardiac silhouette is normal in size. No focal consolidative process. There is no pneumothorax. IMPRESSION: No acute pulmonary findings. No change in aeration from prior study. Electronically signed by: Roger Zamora MD 07/01/2020 6:59 PM POWDERED METAL SUPERVISOR
[2020-07-01] MEDS ORDERED: SODIUM CHLORIDE 0.9% 500ML 500 ML ONE (21:34)
[2020-07-01 21:59] VITALS: O2SAT 99
--- NOTE | 2020-07-02 00:03 | ED.PDOC ---
History of Present Illness - General Chief Complaint: General Stated Complaint: anemia Time Seen by Provider: 07/01/20 17:43 Source: patient Exam Limitations: no limitations - History of Present Illness Initial Comments: The patient is a 65-year-old female presented emergency room secondary to symptomatic anemia. The patient has longstanding chronic anemia and last r eceived a blood transfusion 3 weeks ago. 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 The patient developed increasing shortness of breath as well as increasing dizziness with standing over the last 3 to 4 days. No syncope but she did have near syncope. No chest pain. But she does have a headache with standing up very long. The patient is obviously pale. She denies any clinical symptoms of GI blood loss. No nausea or vomiting except when she gets extremely dizzy and then she does get nauseated. Timing/Duration: other Severity: moderate Improving Factors: nothing Worsening Factors: movement Associated Symptoms: loss of appetite, malaise, shortness of breath, weakness Allergies/Adverse Reactions: Allergies Penicillins Allergy (Severe, Verified 07/05/19 20:08) Anaphylaxis Captopril Allergy (Verified 07/05/19 20:08) Meperidine [From Demerol HCl] Allergy (Verified 07/05/19 20:08) Olmesartan [From Benicar] Allergy (Verified 07/05/19 20:08) Prochlorperazine [From Compazine] Allergy (Verified 07/05/19 20:08) Sulfa Drugs Allergy (Verified 07/05/19 20:08) Rifampin Adverse Reaction (Verified 07/05/19 20:08) Home Medications: Ambulatory Orders Clonazepam [Klonopin] 1 mg PO BID 04/02/13 Fish Oil 1,200 mg PO DAILY 04/02/13 Isosorbide Mononitrate 20 mg PO BID 04/02/13 Montelukast [Singulair] 10 mg PO BEDTIME 04/02/13 Pantoprazole Tablet [Protonix] 40 mg PO BID 04/02/13 Mirtazapine [Remeron] 30 mg PO HS 07/28/13 Calcium 500 mg PO BID #0 tab 07/30/13 Albuterol Inhaler [Ventolin Hfa Inhaler] 2 puff INH PRN PRN 01/04/14 Cholecalciferol [Vitamin D3] 5 each PO DAILY 01/04/14 Citalopram Hydrobromide 20 mg PO DAILY 01/04/14 Furosemide [Lasix] 20 mg PO DAILY 01/04/14 HYDROcodone 10MG/APAP 325MG [Drayton 10/325] 1 each PO Q4H PRN 01/04/14 Potassium Chloride [K-Tab] 20 meq PO BIDFD 01/04/14 Ferrous Sulfate 324 mg PO BID 02/29/16 Fluticasone Furoate-Vilanterol [Breo Ellipta 100-25 Mcg/INH] 1 inh INH BEDTIME 02/29/16 Promethazine W/Codeine Syr [Phenergan With Codeine Syrup] 5 ml PO Q4H PRN 02/29/16 Rosuvastatin Calcium [Crestor] 40 mg PO BEDTIME 02/29/16 Albuterol Sulfate Nebs [Proventil Nebs] 2.5 mg INH PRN PRN 11/29/16 Guaifenesin [Mucinex] 600 mg PO JENNIFER-OTH-DAY 11/29/16 Insulin Aspart [Novolog Flexpen] 100 unit SC AC 11/29/16 Insulin Degludec [Tresiba Flextouch] 30 unit SC DAILY 11/29/16 Magnesium Chloride [Slow-Mag] 286 mg PO DAILY 11/29/16 Magnesium Oxide (Laxative) [Umaña] 500 mg PO JENNIFER-OTH-DAY 11/29/16 Metoprolol Succinate [Metoprolol Succinate ER] 100 mg PO BID 11/29/16 Bifidobacterium Infantis [Align] 4 mg PO DAILY #60 capsule 12/03/16 Clindamycin HCl [Cleocin] 300 mg PO TID #30 capsule 12/03/16 Doxycycline Hyclate 100 mg PO BID #20 tab 12/03/16 Clindamycin HCl [Cleocin] 450 mg PO QID 10 Days cap 09/09/17 Review of Systems - Review of Systems Constitutional: States: malaise EENTM: States: no symptoms reported Respiratory: States: short of breath Cardiology: States: no symptoms reported Gastrointestinal/Abdominal: States: nausea Genitourinary: States: no symptoms reported Musculoskeletal: States: no symptoms reported Skin: States: no symptoms reported Neurological: States: headache Endocrine: States: no symptoms reported All other Systems: No Change from Baseline Past Medical History (General) - Patient Medical History Hx Seizures: No Hx Stroke: No Hx Dementia: No Hx Asthma: No Hx of COPD: Yes Hx Cardiac Disorders: No Hx Congestive Heart Failure: No Hx Pacemaker: No Hx Hypertension: No Hx Thyroid Disease: No Hx Diabetes: Yes Hx Gastroesophageal Reflux: No Hx Renal Disease: No Hx Cancer: Yes - breast Hx of HIV: No Hx Hepatitis C: No Hx MRSA: No Surgical History: appendectomy, cholecystectomy - Vaccination History Hx Tetanus, Diphtheria Vaccination: No Hx Influenza Vaccination: Yes Hx Pneumococcal Vaccination: No - Social History Hx Tobacco Use: Yes Hx Chewing Tobacco Use: No Hx Alcohol Use: No Hx Substance Use: No Hx Substance Use Treatment: No Hx Depression: No Hx Physical Abuse: No Hx Emotional Abuse: No Hx Suspected Abuse: No - Female History Patient : No Family Medical History - Family History Grandparents Family History: Unknown Living Status: Mother Living Status: Cause of : Dementia Hx Family Asthma: No Hx Family Congestive Heart Failure: Yes Hx Family Hypertension: Yes Hx Cardiac Disease: Yes Hx Family Diabetes: No Hx Family Cancer: Yes Physical Exam - Physical Exam General Appearance: Alert, Frail Eye Exam: bilateral normal - Pale sclera Ears, Nose, Throat: hearing grossly normal, normal pharynx Neck: full range of motion, supple Respiratory: lungs clear, normal breath sounds, no respiratory distress, no accessory muscle use Cardiovascular/Chest: normal peripheral pulses, regular rate, rhythm, no edema Peripheral Pulses: radial,right: 2+, radial,left: 2+ Gastrointestinal/Abdominal: non tender, soft Rectal Exam: deferred Back Exam: no CVA tenderness, no vertebral tenderness Extremity: normal range of motion, non-tender, normal inspection, no pedal edema, normal capillary refill Neurologic: bottle tester II-XII nml as tested, alert, normal mood/affect, oriented x 3 Skin Exam: pallor Comments: Vital Signs - 24 hr 07/01/20 07/01/20 07/01/20 17:57 18:53 21:43 Temperature 99.5 F 98.6 F Pulse Rate [ 96 H 93 H Right Brachial] Respiratory 20 20 16 Rate Blood Pressure 112/59 111/56 [Right Arm] O2 Sat by Pulse 100 100 Oximetry 07/01/20 07/01/20 07/01/20 21:58 22:13 22:43 Temperature 98.6 F 97.9 F 97.8 F Pulse Rate [ 85 91 H 89 Right Brachial] Respiratory 16 16 16 Rate Blood Pressure 114/60 118/58 116/63 [Right Arm] O2 Sat by Pulse 99 99 99 Oximetry 07/01/20 23:43 Temperature 98.2 F Pulse Rate [ 89 Right Brachial] Respiratory 18 Rate Blood Pressure 115/53 [Right Arm] O2 Sat by Pulse 99 Oximetry Progress - Progress Progress: 07/02/20 00:04 The patient is a 65-year-old female presenting secondary to symptomatic anemia related to her other multiple ongoing processes. The patient received a unit of packed red blood cells here without difficulty. She also received a liter of IV fluids. She does need to follow her blood pressures at home and record them while she is sitting as well as when she is standing to see if she still needs the amount of blood pressure medication she is taking on a daily basis. Keep follow-up with her primary care doctor and oncology. ER warnings are given. dimitris wasserman [id number] - Results/Orders Results/Orders: EKG shows normal sinus rhythm at 91 bpm. Normal axis. Normal R wave progression. No ST segment or T wave changes indicative of acute ischemia. Borderline prolonged QT interval. Laboratory Tests 07/01/20 07/01/20 07/01/20 18:02 18:02 18:02 WBC Cancelled RBC Cancelled Hgb Cancelled Hct Cancelled MCV Cancelled MCH Cancelled MCHC Cancelled RDW Cancelled Plt Count Cancelled MPV Cancelled Absolute Neuts (auto) Cancelled Absolute Lymphs (auto) Cancelled Absolute Monos (auto) Cancelled Absolute Eos (auto) Cancelled Absolute Basos (auto) Cancelled Neutrophils % Cancelled Lymphocytes % Cancelled Monocytes % Cancelled Eosinophils % Cancelled Basophils % Cancelled Differential Comment Cancelled RBC Morphology Cancelled PT 12.7 H INR 1.28 H PTT (SP) 23.9 Sodium 139 Potassium 4.0 Chloride 106 Carbon Dioxide 23 Anion Gap 14.0 BUN 12 Creatinine 1.00 BUN/Creatinine Ratio 12.0 Random Glucose 122 H Serum Osmolality 278.6 Calcium 8.3 L Total Bilirubin 0.7 AST 43 H D ALT 16 Alkaline Phosphatase 93 Creatine Kinase 53 CK-MB (CK-2) 1.5 CK-MB (CK-2) % Not Reportable Troponin I < 0.02 B-Natriuretic Peptide 67.3 Serum Total Protein 6.2 L Albumin 3.4 Globulin 2.8 Albumin/Globulin Ratio 1.2 Patient ABO/Rh Antibody Screen Crossmatch 07/01/20 07/01/20 18:02 19:05 WBC 6.2 RBC 2.59 L Hgb 7.3 L* Hct 23.7 L MCV 91.6 MCH 28.2 MCHC 30.8 L RDW 23.7 H Plt Count 132 MPV 7.7 Absolute Neuts (auto) 4.80 Absolute Lymphs (auto) 0.70 L Absolute Monos (auto) 0.70 Absolute Eos (auto) 0.00 Absolute Basos (auto) 0.00 Neutrophils % 77.1 Lymphocytes % 10.6 L Monocytes % 11.5 H Eosinophils % 0.6 L Basophils % 0.2 Differential Comment RBC Morphology PT INR PTT (SP) Sodium Potassium Chloride Carbon Dioxide Anion Gap BUN Creatinine BUN/Creatinine Ratio Random Glucose Serum Osmolality Calcium Total Bilirubin AST ALT Alkaline Phosphatase Creatine Kinase CK-MB (CK-2) CK-MB (CK-2) % Troponin I B-Natriuretic Peptide Serum Total Protein Albumin Globulin Albumin/Globulin Ratio Patient ABO/Rh O POSITIVE Antibody Screen Negative Crossmatch See Detail Departure - Departure Clinical Impression: Symptomatic anemia Disposition: Discharge to Home or Self Care Condition: Fair Departure Forms: ED Discharge - Pt. Copy, Patient Portal Self Enrollment Instructions: Myelodysplastic Syndromes (MDS) (DC) Diet: regular diet Activity: increase activity as tolerated Referrals: Yoel Alford MD [Primary Care Provider] - 1-2 Weeks Home Medications: Ambulatory Orders Clonazepam [Klonopin] 1 mg PO BID 04/02/13 Fish Oil 1,200 mg PO DAILY 04/02/13 Isosorbide Mononitrate 20 mg PO BID 04/02/13 Montelukast [Singulair] 10 mg PO BEDTIME 04/02/13 Pantoprazole Tablet [Protonix] 40 mg PO BID 04/02/13 Mirtazapine [Remeron] 30 mg PO HS 07/28/13 Calcium 500 mg PO BID #0 tab 07/30/13 Albuterol Inhaler [Ventolin Hfa Inhaler] 2 puff INH PRN PRN 01/04/14 Cholecalciferol [Vitamin D3] 5 each PO DAILY 01/04/14 Citalopram Hydrobromide 20 mg PO DAILY 01/04/14 Furosemide [Lasix] 20 mg PO DAILY 01/04/14 HYDROcodone 10MG/APAP 325MG [Drayton 10/325] 1 each PO Q4H PRN 01/04/14 Potassium Chloride [K-Tab] 20 meq PO BIDFD 01/04/14 Ferrous Sulfate 324 mg PO BID 02/29/16 Fluticasone Furoate-Vilanterol [Breo Ellipta 100-25 Mcg/INH] 1 inh INH BEDTIME 02/29/16 Promethazine W/Codeine Syr [Phenergan With Codeine Syrup] 5 ml PO Q4H PRN 02/29/16 Rosuvastatin Calcium [Crestor] 40 mg PO BEDTIME 02/29/16 Albuterol Sulfate Nebs [Proventil Nebs] 2.5 mg INH PRN PRN 11/29/16 Guaifenesin [Mucinex] 600 mg PO JENNIFER-OTH-DAY 11/29/16 Insulin Aspart [Novolog Flexpen] 100 unit SC AC 11/29/16 Insulin Degludec [Tresiba Flextouch] 30 unit SC DAILY 11/29/16 Magnesium Chloride [Slow-Mag] 286 mg PO DAILY 11/29/16 Magnesium Oxide (Laxative) [Umaña] 500 mg PO JENNIFER-OTH-DAY 11/29/16 Metoprolol Succinate [Metoprolol Succinate ER] 100 mg PO BID 11/29/16 Bifidobacterium Infantis [Align] 4 mg PO DAILY #60 capsule 12/03/16 Clindamycin HCl [Cleocin] 300 mg PO TID #30 capsule 12/03/16 Doxycycline Hyclate 100 mg PO BID #20 tab 12/03/16 Clindamycin HCl [Cleocin] 450 mg PO QID 10 Days cap 09/09/17 Additional Instructions: The patient is a 65-year-old female presenting secondary to symptomatic anemia related to her other multiple ongoing processes. The patient received a unit of packed red blood cells here without difficulty. She also received a liter of IV fluids. She does need to follow her blood pressures at home and record them while she is sitting as well as when she is standing to see if she still needs the amount of blood pressure medication she is taking on a daily basis. Keep follow-up with her primary care doctor and oncology. ER warnings are given.
[2020-07-02 00:31] VITALS: BP 105/78; TEMP 98.1
== END 2020-07-02 00:31 | disposition home or self-care (01) ==
LOC: ER 17:42
DX: D64.9 Anemia, unspecified (principal); R06.02 Shortness of breath; R51.9 Headache, unspecified; C50.919 Malignant neoplasm of unspecified site of unspecified female breast; M88.9 Osteitis deformans of unspecified bone; E11.9 Type 2 diabetes mellitus without complications; J44.9 Chronic obstructive pulmonary disease, unspecified; Z92.21 Personal history of antineoplastic chemotherapy; Z88.0 Allergy status to penicillin; Z88.8 Allergy status to other drugs, medicaments and biological substances; Z79.899 Other long term (current) drug therapy; Z79.4 Long term (current) use of insulin; Z87.891 Personal history of nicotine dependence
CPT/HCPCS: 36415; 71045; 80053; 82550; 82553; 83540; 83550; 83880; 84484; 85025; 85610; 85730; 86850; 86900; 86901; 86922; 93005; J7040; J7512; P9016; Q0163

== ENCOUNTER → 2020-07-01 | Outpatient (CLI) | payer MEDICARE, MEDICAID | LOC: NC 13:29 | PROVIDERS: ATTEND Family Medicine | DX: E11.42 Type 2 diabetes mellitus with diabetic polyneuropathy (principal); D51.0 Vitamin B12 deficiency anemia due to intrinsic factor deficiency ==

== ENCOUNTER 2020-07-04 19:21 | Emergency (ER) | payer MEDICARE, MEDICAID ==
--- NOTE | 2020-07-04 20:05 | ED.PDOC ---
History of Present Illness - General Chief Complaint: Respiratory Problem Stated Complaint: SOB, dizzy Time Seen by Provider: 07/04/20 19:40 Source: patient Exam Limitations: no limitations - History of Present Illness Initial Comments: PATIENT REPORTS BECK WORSE THAN HER USUAL BASELINE. SHE STATES SHE RECEIVED A TRANSFUSION 2 DAYS AGO AND THAT NORMALLY IT HELPS THESE SYMPTOMS MORE. SHE HAS CANCER, ON CHEMO AND HAS BEEN BATTLING CHRONIC ANEMIA. STATES SYMPTOMS WORSE WITH ANY EXCURSION. IMPROVED WITH REST. DENIES ASSOCIATED PAIN OR DIAPHORESIS. PATIENT WITH METASTATIC BREAST CANCER AND PAGET'S DISEASE. Allergies/Adverse Reactions: Allergies Penicillins Allergy (Severe, Verified 07/04/20 19:49) Anaphylaxis Captopril Allergy (Verified 07/04/20 19:49) Meperidine [From Demerol HCl] Allergy (Verified 07/04/20 19:49) Olmesartan [From Benicar] Allergy (Verified 07/04/20 19:49) Prochlorperazine [From Compazine] Allergy (Verified 07/04/20 19:49) Sulfa Drugs Allergy (Verified 07/04/20 19:49) Rifampin Adverse Reaction (Verified 07/04/20 19:49) Home Medications: Ambulatory Orders Clonazepam [Klonopin] 1 mg PO BID 04/02/13 Fish Oil 1,200 mg PO DAILY 04/02/13 Isosorbide Mononitrate 20 mg PO BID 04/02/13 Montelukast [Singulair] 10 mg PO BEDTIME 04/02/13 Pantoprazole Tablet [Protonix] 40 mg PO BID 04/02/13 Mirtazapine [Remeron] 30 mg PO HS 07/28/13 Calcium 500 mg PO BID #0 tab 07/30/13 Albuterol Inhaler [Ventolin Hfa Inhaler] 2 puff INH PRN PRN 01/04/14 Cholecalciferol [Vitamin D3] 5 each PO DAILY 01/04/14 Citalopram Hydrobromide 20 mg PO DAILY 01/04/14 Furosemide [Lasix] 20 mg PO DAILY 01/04/14 HYDROcodone 10MG/APAP 325MG [Stedman 10/325] 1 each PO Q4H PRN 01/04/14 Potassium Chloride [K-Tab] 20 meq PO BIDFD 01/04/14 Ferrous Sulfate 324 mg PO BID 02/29/16 Fluticasone Furoate-Vilanterol [Breo Ellipta 100-25 Mcg/INH] 1 inh INH BEDTIME 02/29/16 Promethazine W/Codeine Syr [Phenergan With Codeine Syrup] 5 ml PO Q4H PRN 02/29/16 Rosuvastatin Calcium [Crestor] 40 mg PO BEDTIME 02/29/16 Albuterol Sulfate Nebs [Proventil Nebs] 2.5 mg INH PRN PRN 11/29/16 Guaifenesin [Mucinex] 600 mg PO JENNIFER-OTH-DAY 11/29/16 Insulin Aspart [Novolog Flexpen] 100 unit SC AC 11/29/16 Insulin Degludec [Tresiba Flextouch] 30 unit SC DAILY 11/29/16 Magnesium Chloride [Slow-Mag] 286 mg PO DAILY 11/29/16 Magnesium Oxide (Laxative) [Umaña] 500 mg PO JENNIFER-OTH-DAY 11/29/16 Metoprolol Succinate [Metoprolol Succinate ER] 100 mg PO BID 11/29/16 Bifidobacterium Infantis [Align] 4 mg PO DAILY #60 capsule 12/03/16 Clindamycin HCl [Cleocin] 300 mg PO TID #30 capsule 12/03/16 Doxycycline Hyclate 100 mg PO BID #20 tab 12/03/16 Clindamycin HCl [Cleocin] 450 mg PO QID 10 Days cap 09/09/17 Review of Systems - Review of Systems Constitutional: States: weakness. Denies: chills, fever EENTM: States: no symptoms reported Respiratory: States: see HPI, cough, short of breath Cardiology: States: no symptoms reported Gastrointestinal/Abdominal: States: no symptoms reported Genitourinary: States: no symptoms reported Musculoskeletal: States: no symptoms reported Skin: States: no symptoms reported Neurological: States: no symptoms reported Past Medical History (General) - Patient Medical History Hx Seizures: No Hx Stroke: No Hx Dementia: No Hx Asthma: No Hx of COPD: Yes Hx Cardiac Disorders: Yes - tachycardia Hx Congestive Heart Failure: Yes Hx Pacemaker: No Hx Hypertension: Yes Hx Thyroid Disease: No Hx Diabetes: Yes Hx Gastroesophageal Reflux: No Hx Renal Disease: No Hx Cancer: Yes - breast c mets Hx of HIV: No Hx Hepatitis C: No Hx MRSA: No Surgical History: appendectomy, cholecystectomy - Vaccination History Hx Tetanus, Diphtheria Vaccination: No Hx Influenza Vaccination: Yes Hx Pneumococcal Vaccination: No - Social History Hx Tobacco Use: Yes Hx Chewing Tobacco Use: No Hx Alcohol Use: No Hx Substance Use: No Hx Substance Use Treatment: No Hx Depression: No Hx Physical Abuse: No Hx Emotional Abuse: No Hx Suspected Abuse: No - Female History Patient : No Family Medical History - Family History Grandparents Family History: Unknown Living Status: Mother Living Status: Cause of : Dementia Hx Family Asthma: No Hx Family Congestive Heart Failure: Yes Hx Family Hypertension: Yes Hx Cardiac Disease: Yes Hx Family Diabetes: No Hx Family Cancer: Yes Physical Exam - Physical Exam General Appearance: Alert, Obese, Well Developed, Well Groomed Eyes, Ears, Nose, Throat Exam: normal ENT inspection, pale conjunctivae (R), pale conjunctivae (L) Neck: non-tender, supple, normal inspection Respiratory: lungs clear, normal breath sounds, no respiratory distress Cardiovascular/Chest: normal peripheral pulses, regular rate, rhythm, no edema Gastrointestinal/Abdominal: normal bowel sounds, non tender, soft, no organomegaly Extremity: non-tender, normal inspection, no pedal edema Neurologic: no motor/sensory deficits, alert, normal mood/affect, oriented x 3 Skin Exam: normal color, warm/dry Lymphatic: no adenopathy Progress - Progress Progress: 07/04/20 20:37 PATIENT REPORTS THAT HER ONCOLOGIST TOLD HER THAT SHE SHOULD BE TRANSFUSED IF HER BLOOD COUNT WAS LESS THAT 7.9. PATIENT IS COMPLAINING OF SEVERE BREATHLESSNESS WITH LIGHT EXCURSION AND FEELS AN ADDITIONAL UNIT OF BLOOD TRANSFUSION WOULD HELP HER. I CAN FIND NO FAULT IN HER ARGUMENT SO WILL AUTHORIZE TRANSFUSION OF AN ADDITIONAL UNIT OF PRBC's. Departure - Departure Clinical Impression: Aplastic anemia Time of Disposition: 23:00 Disposition: Discharge to Home or Self Care Condition: Good Departure Forms: ED Discharge - Pt. Copy, Patient Portal Self Enrollment Referrals: Yoel Alford MD [Primary Care Provider] - 1-2 Weeks Home Medications: Ambulatory Orders Clonazepam [Klonopin] 1 mg PO BID 04/02/13 Fish Oil 1,200 mg PO DAILY 04/02/13 Isosorbide Mononitrate 20 mg PO BID 04/02/13 Montelukast [Singulair] 10 mg PO BEDTIME 04/02/13 Pantoprazole Tablet [Protonix] 40 mg PO BID 04/02/13 Mirtazapine [Remeron] 30 mg PO HS 07/28/13 Calcium 500 mg PO BID #0 tab 07/30/13 Albuterol Inhaler [Ventolin Hfa Inhaler] 2 puff INH PRN PRN 01/04/14 Cholecalciferol [Vitamin D3] 5 each PO DAILY 01/04/14 Citalopram Hydrobromide 20 mg PO DAILY 01/04/14 Furosemide [Lasix] 20 mg PO DAILY 01/04/14 HYDROcodone 10MG/APAP 325MG [Stedman 10/325] 1 each PO Q4H PRN 01/04/14 Potassium Chloride [K-Tab] 20 meq PO BIDFD 01/04/14 Ferrous Sulfate 324 mg PO BID 02/29/16 Fluticasone Furoate-Vilanterol [Breo Ellipta 100-25 Mcg/INH] 1 inh INH BEDTIME 02/29/16 Promethazine W/Codeine Syr [Phenergan With Codeine Syrup] 5 ml PO Q4H PRN 02/29/16 Rosuvastatin Calcium [Crestor] 40 mg PO BEDTIME 02/29/16 Albuterol Sulfate Nebs [Proventil Nebs] 2.5 mg INH PRN PRN 11/29/16 Guaifenesin [Mucinex] 600 mg PO JENNIFER-OTH-DAY 11/29/16 Insulin Aspart [Novolog Flexpen] 100 unit SC AC 11/29/16 Insulin Degludec [Tresiba Flextouch] 30 unit SC DAILY 11/29/16 Magnesium Chloride [Slow-Mag] 286 mg PO DAILY 11/29/16 Magnesium Oxide (Laxative) [Umaña] 500 mg PO JENNIFER-OTH-DAY 11/29/16 Metoprolol Succinate [Metoprolol Succinate ER] 100 mg PO BID 11/29/16 Bifidobacterium Infantis [Align] 4 mg PO DAILY #60 capsule 12/03/16 Clindamycin HCl [Cleocin] 300 mg PO TID #30 capsule 12/03/16 Doxycycline Hyclate 100 mg PO BID #20 tab 12/03/16 Clindamycin HCl [Cleocin] 450 mg PO QID 10 Days cap 09/09/17 Additional Instructions: PLEASE CONTACT YOUR ONCOLOGIST TOMORROW TO ARRANGE YOUR FOLLOW UP. RETURN TO ER IF ANY ADDITIONAL PROBLEMS. THANK YOU FOR USING THE ER.
--- NOTE | 2020-07-04 20:20 | RAD ---
XR CHEST 2 VIEWS HISTORY: Shortness of breath. COMPARISON: 07/01/2020 FINDINGS: The heart size is within normal limits. There is no pulmonary vascular congestion. No consolidation, pleural effusion, or pneumothorax is seen. No acute bony findings are seen. Right central venous line is stable. IMPRESSION: No evidence of acute cardiopulmonary disease. Electronically signed by: Hieu Lopez MD 07/04/2020 8:18 PM [employer]
[2020-07-04] MEDS ORDERED: SODIUM CHLORIDE 0.9% 500ML 500 ML ONE (22:00)
[2020-07-04] MEDS ORDERED: ACETAMINOPHEN 500 MG TAB PO ONE (22:07)
[2020-07-04] MEDS ORDERED: ACETAMINOPHEN 500 MG TAB ONE (22:07)
[2020-07-05 00:07] VITALS: BP 121/59; TEMP 97.5; O2SAT 96
== END 2020-07-05 00:17 | disposition home or self-care (01) ==
LOC: ER 19:21
DX: D61.9 Aplastic anemia, unspecified (principal); C50.919 Malignant neoplasm of unspecified site of unspecified female breast; C79.9 Secondary malignant neoplasm of unspecified site; R06.02 Shortness of breath; M88.9 Osteitis deformans of unspecified bone; J44.9 Chronic obstructive pulmonary disease, unspecified; I50.9 Heart failure, unspecified; I11.0 Hypertensive heart disease with heart failure; E11.9 Type 2 diabetes mellitus without complications; Z87.891 Personal history of nicotine dependence; Z79.899 Other long term (current) drug therapy; Z88.0 Allergy status to penicillin; Z88.8 Allergy status to other drugs, medicaments and biological substances; Z88.2 Allergy status to sulfonamides; Z79.4 Long term (current) use of insulin
CPT/HCPCS: 36415; 71046; 80053; 84484; 85025; 86850; 86900; 86901; 86922; 93005; J7040; P9016